=== PATIENT | female | born 1950 | race Caucasian/White ===

== ENCOUNTER 2017-01-30 16:32 | Emergency (ER) | payer OTHER ==
[~2017-01-30] VITALS: Ht 171.5 cm; Wt 114.2 kg
[2017-01-30 16:56] VITALS: TEMP 36.6; Ht 171.5 cm; Wt 114.2 kg
[2017-01-30 18:15] VITALS: O2SAT 95
[2017-01-30 18:49] LABS: BASO ABS # 0.07 K/uL (0-0.2); COMPLETE YES; HEMATOCRIT 48.3 % (37-47); IG% 0.4 %; LYMPH % 18.3 %; LYMPH ABS # 1.31 K/uL (1.2-3.4); MEAN CORPUSCULAR HEMOGLOBIN 31.3 pg (25-34); MEAN CORPUSCULAR HGB CONC 34.4 g/dl (32-36); MEAN PLATELET VOLUME 9.5 fL (7.4-10.4); MONO % 6.3 %; PLATELET COUNT 268 K/uL (130-400); RED BLOOD COUNT 5.31 M/uL (4.2-5.4); WHITE BLOOD COUNT 7.17 K/uL (4.8-10.8)
--- NOTE | 2017-01-30 18:54 | DIAGNOSTIC IMAGING REPORT ---
CHEST ONE VIEW PORTABLE CLINICAL HISTORY: Atypical chest pain. Atrial fibrillation. COMPARISON STUDY: No previous studies for comparison. FINDINGS: The heart is borderline enlarged. There is no overt failure. There is no lobar consolidation. There is minor basilar atelectasis. There are no pleural effusions.[ IMPRESSION: No active disease in the chest. Electronically signed by: Lee Barron M.D. 01/30/2017 6:53 PM Dictated Date/Time: 01/30/2017 6:52 PM
[2017-01-30 19:01] LABS: INR 1.1 (0.9-1.1); PROTHROMBIN TIME (PATIENT) 11.4 SECONDS (9.0-12.0)
[2017-01-30] MEDS ORDERED: MULT-513 PO (19:02)
[2017-01-30] MEDS ORDERED: METO50TA16 PO (19:02)
[2017-01-30] MEDS ORDERED: ASPI81TA28 PO (19:02)
[2017-01-30] MEDS ORDERED: PRT/20 PO (19:02)
[2017-01-30] MEDS ORDERED: LOSA25TA18 PO (19:02)
[2017-01-30 19:05] LABS: BLOOD UREA NITROGEN 8 mg/dl (7-18); BUN/CREATININE RATIO 9.7 (10-20); CALCIUM 9.3 mg/dl (8.5-10.1); CARBON DIOXIDE 30 mmol/L (21-32); CHLORIDE 110 mmol/L (98-107); CREATININE 0.84 mg/dl (0.60-1.20); GLUCOSE 118 mg/dl (70-99); POTASSIUM 3.7 mmol/L (3.5-5.1); SODIUM 144 mmol/L (136-145)
[2017-01-30] MEDS ORDERED: WARFARIN SOD 3 MG TAB PO STA (19:07)
[2017-01-30] MEDS ORDERED: ENOXAPARIN 100 MG/1ML SYR SQ ONE (19:15)
[2017-01-30] MEDS ORDERED: ENOX100I SQ (20:30)
[2017-01-30] MEDS ORDERED: WARF2TAB PO (20:30)
[2017-01-30 21:00] VITALS: BP 146/102; PULSE 63; O2SAT 95
--- NOTE | 2017-01-30 22:28 | EMERGENCY ROOM VISIT NOTE ---
History Report prepared by Ioana: Sol Carson Under the Supervision of: Dr. Isaias Raymond D.O. First contact with patient: 17:57 Chief Complaint: REFERRED BY DOCTOR Stated Complaint: A FIB History of Present Illness The patient is a 67 year old female who presents to the Emergency Room with complaints of resolved palpitations which started at 1430. The patient has a history of atrial fibrillation. The patient was on Coumadin, but was taken off because she did not have any symptoms. She is currently taking a baby aspiring daily. She is also on metoprolol. Today, she was at lunch with her friend when the palpitations began. She finished her lunch and went home. Upon arriving home , she noticed that her heart rate was 123. She took some extra metoprolol to no significant relief. She went to the walk in clinic and had an EKG which found that she was in a fib. She was sent to the ED. Upon arriving here, her symptoms improved. She denies any chest pain, SOB, abdominal pain, nausea, vomiting, or dysuria. She had 1 episode of diarrhea today. She denies any hematuria, hemoptysis, bloody stools, or vaginal bleeding. She denies any history of brain bleeds. She denies any recent trauma. She did not have any trouble with the Coumadin when she was on it. She has had some high blood pressure recently and was started on Cozaar. She denies any history of CHF, diabetes, or stroke. Source of History: patient Onset: 1430 today Position: other (global) Quality: other (palpitations) Timing: resolved Associated Symptoms: + diarrhea, No chest pain, No SOB, No nausea, No vomiting, No abdominal pain, No hematochezia, No urinary symptoms Note: Pt denies vaginal bleeding. Review of Systems See HPI for pertinent positives & negatives. A total of 10 systems reviewed and were otherwise negative. Past Medical & Surgical Medical Problems: (1) Hypertension Family History Diabetes mellitus Social History Smoking Status: Never Smoker Marital Status: Occupation Status: retired Current/Historical Medications Scheduled Aspirin (Aspirin Ec), 81 MG PO DAILY Enoxaparin (Lovenox), 110 MG SQ BID Metoprolol Tartrate (Lopressor) (Lopressor), 75 MG PO BID Multivitamins/Minerals (Mvi With Minerals), 1 TAB PO DAILY Pantoprazole (Protonix), 1 TAB PO DAILY Warfarin Sodium (Coumadin), 2 MG PO DAILY Scheduled PRN Losartan Potassium (Cozaar), 25 MG PO DAILY PRN for HYPERTENSION Allergies Coded Allergies: Penicillins (Verified Allergy, Severe, RASH, 01/30/17) Physical Exam Vital Signs Date Time Temp Pulse Resp B/P (MAP) Pulse Ox O2 Delivery O2 Flow Rate FiO2 01/30/17 21:00 63 16 146/102 95 01/30/17 20:09 63 17 158/95 96 Room Air 01/30/17 19:17 71 01/30/17 18:15 65 14 148/105 95 Room Air 01/30/17 18:15 95 Room Air 01/30/17 18:15 95 01/30/17 16:56 36.6 89 18 156/7 96 Room Air Physical Exam GENERAL: sitting up in bed, alert, well appearing, well nourished, no distress, non-toxic, Chads-Vasc score of 3. EYE EXAM: normal conjunctiva OROPHARYNX: no exudate, no erythema, lips, buccal mucosa, and tongue normal and mucous membranes are moist NECK: supple, no nuchal rigidity, no adenopathy, non-tender LUNGS: Clear to auscultation. Normal chest wall mechanics HEART: no murmurs, S1 normal and S2 normal ABDOMEN: abdomen soft, non-tender, normo-active bowel sounds, no masses, no rebound or guarding. BACK: Back is symmetrical on inspection and there is no deformity, no midline tenderness, no CVA tenderness. SKIN: no rashes and no bruising UPPER EXTREMITIES: upper extremities are grossly normal. LOWER EXTREMITIES: No pitting edema. Calves equal bilaterally. NEURO EXAM: Normal sensorium, cranial nerves II-XII grossly intact, normal speech, no gross weakness of arms, no gross weakness of legs. Medical Decision & Procedures ER Provider Diagnostic Interpretation: Radiology results as stated below per my review and the radiologist's interpretation: CHEST ONE VIEW PORTABLE CLINICAL HISTORY: Atypical chest pain. Atrial fibrillation. COMPARISON STUDY: No previous studies for comparison. FINDINGS: The heart is borderline enlarged. There is no overt failure. There is no lobar consolidation. There is minor basilar atelectasis. There are no pleural effusions.[ IMPRESSION: No active disease in the chest. Electronically signed by: Lee Barron M.D. 01/30/2017 6:53 PM Dictated Date/Time: 01/30/2017 6:52 PM Laboratory Results 01/30/17 18:38 Red Blood Count 5.31, Mean Corpuscular Volume 91.0, Mean Corpuscular Hemoglobin 31.3, Mean Corpuscular Hemoglobin Concent 34.4, Mean Platelet Volume 9.5, Neutrophils (%) (Auto) 68.0, Lymphocytes (%) (Auto) 18.3, Monocytes (%) (Auto) 6.3, Eosinophils (%) (Auto) 6.0, Basophils (%) (Auto) 1.0, Neutrophils # (Auto) 4.88, Lymphocytes # (Auto) 1.31, Monocytes # (Auto) 0.45, Eosinophils # (Auto) 0.43, Basophils # (Auto) 0.07 01/30/17 18:38 Test 01/30/17 18:38 White Blood Count 7.17 K/uL (4.8-10.8) Red Blood Count 5.31 M/uL (4.2-5.4) Hemoglobin 16.6 g/dL (12.0-16.0) Hematocrit 48.3 % (37-47) Mean Corpuscular Volume 91.0 fL (80-100) Mean Corpuscular Hemoglobin 31.3 pg (25-34) Mean Corpuscular Hemoglobin Concent 34.4 g/dl (32-36) Platelet Count 268 K/uL (130-400) Mean Platelet Volume 9.5 fL (7.4-10.4) Neutrophils (%) (Auto) 68.0 % Lymphocytes (%) (Auto) 18.3 % Monocytes (%) (Auto) 6.3 % Eosinophils (%) (Auto) 6.0 % Basophils (%) (Auto) 1.0 % Neutrophils # (Auto) 4.88 K/uL (1.4-6.5) Lymphocytes # (Auto) 1.31 K/uL (1.2-3.4) Monocytes # (Auto) 0.45 K/uL (0.11-0.59) Eosinophils # (Auto) 0.43 K/uL (0-0.5) Basophils # (Auto) 0.07 K/uL (0-0.2) RDW Standard Deviation 44.1 fL (36.4-46.3) RDW Coefficient of Variation 13.2 % (11.5-14.5) Immature Granulocyte % (Auto) 0.4 % Immature Granulocyte # (Auto) 0.03 K/uL (0.00-0.02) Prothrombin Time 11.4 SECONDS (9.0-12.0) Prothromb Time International Ratio 1.1 (0.9-1.1) Anion Gap 4.0 mmol/L (3-11) Est Creatinine Clear Calc Drug Dose 85.5 ml/min Estimated GFR () 83.4 Estimated GFR (Non- 71.9 BUN/Creatinine Ratio 9.7 (10-20) Calcium Level 9.3 mg/dl (8.5-10.1) Total Creatine Kinase 52 U/L (26-192) Creatine Kinase MB < 0.5 ng/ml (0.5-3.6) Creatine Kinase MB Ratio (0-3.0) Troponin I < 0.015 ng/ml (0-0.045) Laboratory results per my review. Medications Administered Medications (Trade) Dose Ordered Sig/Montserrat Route Start Time Stop Time Status Last Admin Dose Admin Warfarin Sodium (Coumadin Tab) 3 mg NOW STAT PO 01/30/17 19:07 01/30/17 19:09 DC 01/30/17 20:04 3 MG Enoxaparin Sodium (Lovenox Inj) 110 mg NOW ONCE SQ 01/30/17 19:15 01/30/17 19:16 DC 01/30/17 20:04 110 MG ECG Indication: palpitations Rate (beats per minute): 89 Rhythm: sinus rhythm Findings: no ectopy, other (normal axis) Change: Previous EKG from office shows A fib at rate 127. ED Course ED COURSE: Vital signs were reviewed and showed hypertension The patients medical record was reviewed The above diagnostic studies were performed and reviewed. ED treatments and interventions as stated above. 1800: The patient was evaluated in room C1B. A complete history and physical examination was performed. 1906: Coumadin Tab 3 mg PO. 1914: Lovenox Inj 110 mg SQ. 1944: I discussed the patient's case with Dr. Askew, Cardiology [facility]. He agrees with the plan. 2032: Upon reevaluation, the patient is resting comfortably.I discussed my findings with the patient and she understands and agrees with the treatment plan. Based on the patients age, coexisting illnesses, exam and lab findings the decision to treat as an outpatient was made. The patient remained stable while under my care. The patient appeared well at the time of discharge. Medical Decision Differential diagnosis: Etiologies such as premature contractions, electrolyte abnormality, cardiac dysrhythmia, thyroid dysfunction, pulmonary embolism, infection, gastrointestinal, as well as others were entertained. Patient is a 67-year-old female who presents the ER for A. fib with RVR. She was evaluated PCPs office and referred in. She does have a history of A. fib previously. EKG from the office showed A. fib with RVR. EKG here shows normal sinus rhythm. She no chest pain or shortness breath. She has been on Coumadin previously. Discussed with the patient notes that her options as she has a chads vasc score of 3. She preferred to resume Coumadin and follow-up with her PCP for further options. I felt this is reasonable. I did discussed case with cardiology. He agreed with treatment. Patient had no risk factors for bleeding at this time. She is updated at bedside. She is discharged following 2 mg Coumadin dose with a prescription for 10 days of 2 mg which was her old regimen along with 5 days of Lovenox. She will see her PCP in the next 1-2 days for follow-up, additional prescriptions and an INR check. 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 Discussed with Pt concerning signs and symptoms to watch out for. Pt was instructed to follow up with their PCP and discussed with the patient their option to return to the ED at anytime for persistent or worsening symptoms. The appropriate anticipatory guidance and out-patient management, including indications for return to the emergency department, were explained at length to the patient and understood. Medication Reconcilliation Current Medication List: was personally reviewed by me Blood Pressure Screening Patient's blood pressure: Elevated blood pressure Blood pressure disposition: Elevated BP felt to be situational Consults Time Called: 1939 Consulting Physician: Dr. Askew, Cardiology [facility] Returned Call: 1944 I discussed the patient's case with him. He agrees with the plan. Impression Primary Impression: Atrial fibrillation with RVR Scribe Attestation The scribe's documentation has been prepared under my direction and personally reviewed by me in its entirety. I confirm that the note above accurately reflects all work, treatment, procedures, and medical decision making performed by me. Departure Information Dispostion Home / Self-Care Prescriptions Warfarin Sodium (COUMADIN) 2 Mg Tab 2 MG PO DAILY for 10 Days, #10 TAB Prov: sIaias Raymond, DO 01/30/17 Enoxaparin (LOVENOX) 100 Mg/Ml Inj 110 MG SQ BID for 5 Days Prov: Isaias Raymond, DO 01/30/17 Referrals Tanya Whitaker, DO Forms HOME CARE DOCUMENTATION FORM, IMPORTANT VISIT INFORMATION, WORK / SCHOOL INSTRUCTIONS Patient Instructions Coumadin, ED Afib, My [facility] Additional Instructions Please follow up with your primary care doctor or if you are a student, [facility] with in the next 24 hours. Any worsening of your symptoms, please return to the ED immediately. This includes any fevers greater than 100.4, worsening pain, chest pain, shortness breath, persistent nausea, palpitations, vomiting, unable to eat or drink, or any other concerning signs or symptoms from your standpoint. If you start to have any bleeding rectally, vaginally, within your urine or coughing up bloody need to return to the ER immediately. If you have any trauma includes hitting your head need to be evaluated by a physician as you are at an increased risk of bleeding. Please follow up with your primary care doctor tomorrow and you will need your INR checked in 3 days. You were only given a prescription for 5 days of Lovenox. Please complete this prescription was otherwise directed by your primary care doctor. You were only given a perception for 10 days worth of Coumadin. This is to ensure that you are evaluated by your primary care doctor and get an additional prescription for this.
== END 2017-01-30 21:00 | disposition home or self-care (01) ==
LOC: C.EDB 16:33 → C.EDC 21:00
DX: I48.0 Paroxysmal atrial fibrillation (principal); I10 Essential (primary) hypertension; Z83.3 Family history of diabetes mellitus; Z79.82 Long term (current) use of aspirin; Z79.899 Other long term (current) drug therapy

== ENCOUNTER → 2017-02-02 | Outpatient (CLI) | payer OTHER ==
[~2017-02-02] MED LIST: ASPI81TA28 PO; ENOX100I SQ; ENOX1INJ13 SQ; LOSA25TA18 PO; METO50TA16 PO; MULT-513 PO; PRT/20 PO; TMB100 PO; WARF2TAB PO
[2017-02-02 17:28] LABS: INR 1.5 (0.9-1.1); PROTHROMBIN TIME (PATIENT) 16.4 SECONDS (9.0-12.0)
== END | disposition home or self-care (01) ==
LOC: C.LABPBG 14:02
PROVIDERS: ATTEND Family Medicine
DX: I48.91 Unspecified atrial fibrillation (principal)

== ENCOUNTER 2017-02-06 07:41 | Observation (INO) | payer OTHER ==
[~2017-02-06] VITALS: Ht 172.7 cm; Wt 111.4 kg
[~2017-02-06 07:41] MED LIST changes: -ENOX1INJ13 SQ; -TMB100 PO
[2017-02-06] MEDS ORDERED: METOPROLOL TARTRATE 1 MG/ML VIAL IV STA ×2 (07:51→08:50)
--- NOTE | 2017-02-06 07:53 | EMERGENCY ROOM VISIT NOTE ---
History Report prepared by Ioana: Maryse Mcelroy Under the Supervision of: Dr. Geovanni Contreras D.O. First contact with patient: 07:45 Chief Complaint: TACHYCARDIA Stated Complaint: RAPID HEART RATE 135-140 History of Present Illness The patient is a 67 year old female who presents to the Emergency Room with complaints of a persistent irregular and tachycardic heart rate that began around 299. The patient reports a history of atrial fibrillation, noting that she was evaluated in the emergency department one week ago for her symptoms. She states that she was placed on Lovenox last Sunday and then Coumadin on Sunday. The patient states that she is experiencing palpitations and tachycardia. She denies any shortness of breath or chest pain. Source of History: patient Onset: 299 Position: other (heart) Quality: other (tachycardic and irregular) Timing: other (persistent) Associated Symptoms: No chest pain, No SOB Review of Systems See HPI for pertinent positives & negatives. A total of 10 systems reviewed and were otherwise negative. Past Medical & Surgical Medical Problems: (1) Heart palpitations (2) Hypertension Family History Diabetes mellitus Social History Smoking Status: Never Smoker Marital Status: Occupation Status: retired Current/Historical Medications Scheduled Enoxaparin Sodium (Lovenox), 110 MG SQ BID Metoprolol Tartrate (Lopressor) (Lopressor), 75 MG PO BID Multivitamins/Minerals (Mvi With Minerals), 1 TAB PO DAILY Pantoprazole (Protonix), 1 TAB PO DAILY Warfarin Sodium (Coumadin), 2 MG PO DAILY Scheduled PRN Losartan Potassium (Cozaar), 25 MG PO DAILY PRN for HYPERTENSION Allergies Coded Allergies: Penicillins (Verified Allergy, Severe, RASH, 02/06/17) Physical Exam Vital Signs Date Time Temp Pulse Resp B/P (MAP) Pulse Ox O2 Delivery O2 Flow Rate FiO2 02/06/17 12:24 99 16 107/79 94 Nasal Cannula 2.0 02/06/17 12:14 93 16 106/74 94 Nasal Cannula 2.0 02/06/17 12:07 117 20 108/89 94 Room Air 02/06/17 11:47 101 19 120/71 96 Nasal Cannula 2.0 02/06/17 11:44 96 Nasal Cannula 2.0 02/06/17 11:22 90 16 121/90 96 Nasal Cannula 2.0 02/06/17 10:41 86 15 119/78 02/06/17 10:12 121 16 143/108 96 Nasal Cannula 2.0 02/06/17 09:53 130 02/06/17 09:28 126 11 118/88 96 Nasal Cannula 2.0 02/06/17 09:17 124 12 116/93 98 Nasal Cannula 2.0 02/06/17 09:07 132 114/95 02/06/17 09:04 134 12 114/95 96 Nasal Cannula 02/06/17 08:44 132 14 123/86 98 Nasal Cannula 2.0 02/06/17 08:30 133 20 123/86 96 Nasal Cannula 2.0 02/06/17 08:29 96 Nasal Cannula 2.0 02/06/17 08:07 132 14 123/95 97 Nasal Cannula 2.0 02/06/17 08:03 134 132/99 02/06/17 07:59 137 02/06/17 07:58 126 16 132/99 96 Nasal Cannula 2.0 02/06/17 07:53 99 Nasal Cannula 2.0 02/06/17 07:50 95 Room Air 02/06/17 07:50 95 Room Air 02/06/17 07:50 96 Room Air 02/06/17 07:50 36.8 130 20 139/112 96 Room Air Physical Exam CONSTITUTIONAL/VITAL SIGNS: Reviewed / noted above. GENERAL: Non-toxic in appearance. INTEGUMENTARY: Warm, dry, and [place]. HEAD: Normocephalic. EYES: without scleral icterus or trauma. ENT/OROPHARYNX: clear and moist. LYMPHADENOPATHY/NECK: Is supple without lymphadenopathy or meningismus. RESPIRATORY: Lungs clear and equal. CARDIOVASCULAR: Rapid, irregular pulse. GI/ABDOMEN: Soft and nontender. No organomegaly or pulsatile mass. No rebound or guarding. Normal bowel sounds. EXTREMITIES: Warm and well perfused. BACK: No CVA tenderness. NEUROLOGICAL: Intact without focal deficits. PSYCHIATRIC: normal affect. MUSCULOSKELETAL: Normally developed with good muscle tone. Medical Decision & Procedures ER Provider Diagnostic Interpretation: X ray results and stated below per my interpretation and radiology interpretation. SINGLE VIEW CHEST CLINICAL HISTORY: Fever. Sepsis. FINDINGS: An AP, portable, upright chest radiograph is compared to study dated 01/30/2017. The examination is degraded by portable technique and patient rotation. The heart is top normal for projection. The pulmonary vasculature is noncongested. The lungs and pleural spaces are clear. No pneumothorax is seen. The skeletal structures are osteopenic. The bony thorax is grossly intact. IMPRESSION: No acute cardiopulmonary abnormality. Electronically signed by: Branden Valentin M.D. 02/06/2017 8:15 AM Dictated Date/Time: 02/06/2017 8:14 AM Laboratory Results 02/06/17 07:55 Red Blood Count 5.50, Mean Corpuscular Volume 92.7, Mean Corpuscular Hemoglobin 29.3, Mean Corpuscular Hemoglobin Concent 31.6, Mean Platelet Volume 10.2, Neutrophils (%) (Auto) 69.1, Lymphocytes (%) (Auto) 21.5, Monocytes (%) (Auto) 5.8, Eosinophils (%) (Auto) 2.8, Basophils (%) (Auto) 0.7, Neutrophils # (Auto) 5.22, Lymphocytes # (Auto) 1.62, Monocytes # (Auto) 0.44, Eosinophils # (Auto) 0.21, Basophils # (Auto) 0.05 02/06/17 07:55 Test 02/06/17 07:55 02/06/17 12:02 White Blood Count 7.55 K/uL (4.8-10.8) Red Blood Count 5.50 M/uL (4.2-5.4) Hemoglobin 16.1 g/dL (12.0-16.0) Hematocrit 51.0 % (37-47) Mean Corpuscular Volume 92.7 fL (80-100) Mean Corpuscular Hemoglobin 29.3 pg (25-34) Mean Corpuscular Hemoglobin Concent 31.6 g/dl (32-36) Platelet Count 280 K/uL (130-400) Mean Platelet Volume 10.2 fL (7.4-10.4) Neutrophils (%) (Auto) 69.1 % Lymphocytes (%) (Auto) 21.5 % Monocytes (%) (Auto) 5.8 % Eosinophils (%) (Auto) 2.8 % Basophils (%) (Auto) 0.7 % Neutrophils # (Auto) 5.22 K/uL (1.4-6.5) Lymphocytes # (Auto) 1.62 K/uL (1.2-3.4) Monocytes # (Auto) 0.44 K/uL (0.11-0.59) Eosinophils # (Auto) 0.21 K/uL (0-0.5) Basophils # (Auto) 0.05 K/uL (0-0.2) RDW Standard Deviation 45.5 fL (36.4-46.3) RDW Coefficient of Variation 13.4 % (11.5-14.5) Immature Granulocyte % (Auto) 0.1 % Immature Granulocyte # (Auto) 0.01 K/uL (0.00-0.02) Prothrombin Time 26.1 SECONDS (9.0-12.0) Prothromb Time International Ratio 2.4 (0.9-1.1) Activated Partial Thromboplast Time 35.5 SECONDS (21.0-31.0) Partial Thromboplastin Ratio 1.4 Anion Gap 8.0 mmol/L (3-11) Est Creatinine Clear Calc Drug Dose 87.4 ml/min Estimated GFR () 85.8 Estimated GFR (Non- 74.0 BUN/Creatinine Ratio 12.3 (10-20) Calcium Level 9.6 mg/dl (8.5-10.1) Total Bilirubin 0.5 mg/dl (0.2-1) Direct Bilirubin 0.1 mg/dl (0-0.2) Aspartate Amino Transf (AST/SGOT) 51 U/L (15-37) Alanine Aminotransferase (ALT/SGPT) 54 U/L (12-78) Alkaline Phosphatase 69 U/L (45-117) Total Creatine Kinase 41 U/L (26-192) Creatine Kinase MB 0.7 ng/ml (0.5-3.6) Creatine Kinase MB Ratio 1.7 (0-3.0) Troponin I < 0.015 ng/ml (0-0.045) Total Protein 7.6 gm/dl (6.4-8.2) Albumin 3.7 gm/dl (3.4-5.0) Lipase 122 U/L (73-393) Thyroid Stimulating Hormone (TSH) 1.920 uIu/ml (0.300-4.500) Laboratory results as stated above per my review. Medications Administered Medications (Trade) Dose Ordered Sig/Montserrat Route Start Time Stop Time Status Last Admin Dose Admin Metoprolol Tartrate (Lopressor Iv) 5 mg NOW STAT IV 02/06/17 07:51 02/06/17 07:52 DC 02/06/17 08:03 5 MG Metoprolol Tartrate (Lopressor Iv) 10 mg NOW STAT IV 02/06/17 08:50 02/06/17 08:52 DC 02/06/17 09:07 10 MG Diltiazem HCl (Cardizem Inj) 20 mg NOW STAT IV 02/06/17 10:14 02/06/17 10:15 DC 02/06/17 10:32 20 MG Diltiazem HCl (Cardizem Bolus / Drip) 1 ea NOW STAT IV 02/06/17 11:23 02/06/17 11:25 DC 02/06/17 11:23 1 EA Diltiazem HCl 125 mg/Dextrose 125 ml @ 0 mls/hr Q0M PRN IV 02/06/17 11:45 03/08/17 11:44 02/06/17 11:46 10 MLS/HR ECG Indication: palpitations, tachycardia Rate (beats per minute): 132 Rhythm: atrial fibrillation Findings: no acute ischemic change, no ectopy ED Course 0748: Previous medical records were reviewed. The patient was evaluated in room A12B. A complete history and physical examination was performed. 0751: Ordered Lopressor IV 5 mg IV. 0850: Ordered Lopressor IV 5 mg IV. 1014: Ordered Cardizem Inj 20 mg IV. 1113: I reevaluated the patient and she is resting. I discussed the exam findings with her and I discussed the treatment plan. She verbalized complete understanding and agreement. She will be evaluated for further treatment. 1118: I discussed the patients case with Dr. Beasley, Cardiology. He states that the patient should be placed on a Cardizem drip and evaluated in the hospital for further treatment. 1123: Ordered Cardizem Bolus/Drip 1 ea IV. 1159: The patients case was discussed with Dr. Walsh [facility]. He is going to evaluate the patient for further treatment. Medical Decision Differentials considered include acute myocardial infarction, acute coronary syndrome, myocarditis, pericarditis, pericardial effusions /tamponade, esophageal perforation, thoracic aortic dissection, pulmonary embolism, pneumonia, pneumothorax, pancreatitis, shingles, acute cholecystitis, and perforated abdominal viscus. This is a 67-year-old female who presents to the ED with a chief complaint of elevated heart rate. The patient has a history of atrial fibrillation. She states that her first episode was in October of this year. She had a recent episode about a week ago and was placed on Coumadin. The patient states that she developed symptoms around 5:30 AM this morning. She denies any associated shortness of breath or chest pains. The patient states that she can feel when she is in atrial fibrillation. The patient's twelve-lead EKG reveals A. fib at a rate of 132. CBC is unremarkable. INR is 2.4. Complete metabolic panel was unremarkable. Troponin is negative, chest x-ray was negative for acute disease. TSH is normal. The patient's exam was unremarkable other than tachycardic irregular rhythm. The patient was treated with a total 15 mg of IV Lopressor. This is not affect her rate or rhythm. The patient was then given IV Cardizem with a drip and her rate was controlled. I spoke with Dr. Beasley from cardiology about the patient. The patient will be seen for further evaluation by the hospitalist service and by cardiology services. Her rate was controlled on the Cardizem drip. Medication Reconcilliation Current Medication List: was personally reviewed by me Blood Pressure Screening Patient's blood pressure: Elevated blood pressure Blood pressure disposition: Referred to PCP (referred to the hospitalist) Consults Time Called: 1113 Consulting Physician: Dr. Beasley, Cardiology Returned Call: 1113 I discussed the patients case with Dr. Beasley, Cardiology. He states that the patient should be placed on a Cardizem drip and evaluated in the hospital for further treatment. Additional Consults: Time Called: 1126 Consulted Physician: NETO Fernandes Returned Call: 1152 Additional Comments: The patients case was discussed with NETO Fernandes. He is going to evaluate the patient for further treatment. Impression Primary Impression: Atrial fibrillation with RVR Scribe Attestation The scribe's documentation has been prepared under my direction and personally reviewed by me in its entirety. I confirm that the note above accurately reflects all work, treatment, procedures, and medical decision making performed by me. Departure Information Dispostion Being Evaluated By Hospitalist Referrals No Doctor, Assigned (PCP)
[2017-02-06] MEDS ORDERED: ENOX1INJ13 SQ (08:03)
--- NOTE | 2017-02-06 08:17 | DIAGNOSTIC IMAGING REPORT ---
SINGLE VIEW CHEST CLINICAL HISTORY: Fever. Sepsis. FINDINGS: An AP, portable, upright chest radiograph is compared to study dated 01/30/2017. The examination is degraded by portable technique and patient rotation. The heart is top normal for projection. The pulmonary vasculature is noncongested. The lungs and pleural spaces are clear. No pneumothorax is seen. The skeletal structures are osteopenic. The bony thorax is grossly intact. IMPRESSION: No acute cardiopulmonary abnormality. Electronically signed by: Branden Valentin M.D. 02/06/2017 8:15 AM Dictated Date/Time: 02/06/2017 8:14 AM
[2017-02-06 08:37] LABS: BASO % 0.7 %; BASO ABS # 0.05 K/uL (0-0.2); COMPLETE YES; EOS % 2.8 %; IG% 0.1 %; LYMPH % 21.5 %; LYMPH ABS # 1.62 K/uL (1.2-3.4); MEAN CELL VOLUME 92.7 fL (80-100); MEAN CORPUSCULAR HEMOGLOBIN 29.3 pg (25-34); MEAN CORPUSCULAR HGB CONC 31.6 g/dl (32-36); MEAN PLATELET VOLUME 10.2 fL (7.4-10.4); MONO % 5.8 %; NEUT % 69.1 %; PLATELET COUNT 280 K/uL (130-400); WHITE BLOOD COUNT 7.55 K/uL (4.8-10.8)
[2017-02-06 08:47] LABS: INR 2.4 (0.9-1.1); PARTIAL THROMBOPLASTIN RATIO 1.4; PROTHROMBIN TIME (PATIENT) 26.1 SECONDS (9.0-12.0)
[2017-02-06 08:54] LABS: ALT/SGPT 54 U/L (12-78); BLOOD UREA NITROGEN 10 mg/dl (7-18); BUN/CREATININE RATIO 12.3 (10-20); CALCIUM 9.6 mg/dl (8.5-10.1); CARBON DIOXIDE 26 mmol/L (21-32); CHLORIDE 110 mmol/L (98-107); CREATININE 0.82 mg/dl (0.60-1.20); GLUCOSE 118 mg/dl (70-99); POTASSIUM 3.7 mmol/L (3.5-5.1); SODIUM 144 mmol/L (136-145)
[2017-02-06 09:05] LABS: ALKALINE PHOSPHATASE 69 U/L (45-117); AST/SGOT 51 U/L (15-37); CKMB/CK RATIO 1.7 (0-3.0)
[2017-02-06] MEDS ORDERED: DILTIAZEM HCL 5 MG/ML 5 ML VIAL IV STA (10:14)
[2017-02-06] MEDS ORDERED: DILTIAZEM BOLUS / DRIP IV STA ×2 (11:23→11:40)
[2017-02-06 11:44] VITALS: O2SAT 96; Ht 172.7 cm; Wt 111.4 kg
[2017-02-06] MEDS ORDERED: ALUMINUM/MAGNESIUM/SIMETH (MAALOX MAX) 30 ML UDC PO PRN (11:45)
[2017-02-06] MEDS ORDERED: ACETAMINOPHEN 325 MG TAB PO PRN (11:45)
[2017-02-06] MEDS ORDERED: MoRPHine SULFATE 2 MG/ML CARP IV PRN (11:45)
[2017-02-06] MEDS ORDERED: ONDANSETRON INJ 2 MG/ML 2 ML VIAL IV PRN (11:45)
[2017-02-06] MEDS ORDERED: MAGNESIUM HYDROXIDE SUSP 30 ML UDC PO PRN (11:45)
[2017-02-06] MEDS ORDERED: LOSARTAN POTASSIUM 25 MG TAB PO PRN (11:45)
[2017-02-06] MEDS ORDERED: POLYETHYLENE (MIRALAX) 17 GM PACK PO PRN (11:45)
[2017-02-06] MEDS ORDERED: DILTIAZEM HCL INJ 125 MG in DEXTROSE 5% 100ML IV PRN ×2 (11:45→15:00)
--- NOTE | 2017-02-06 12:19 | History and Physical ---
History & Physical Date & Time of Service: Feb 06, 2017 at 12:04 Chief Complaint: Rapid Heart Rate 135-140 Primary Care Physician: Tanya Whitaker DO History of Present Illness Source: patient 67 y/o F Hx HTN, PAF. Pt had an initial episode of AF October 02 treated at [facility] - reverted to a sinus rhythm. She had an additional episode one week prior and was sent from her PCP office to [facility] [address]. She reverted to a sinus rhythm on route. She again developed palpitations today and presented to the ER where AF with a rate of ~ 130 was confirmed. She denies any accompanying CP, SOB or light-headedness. The pt was placed on Lovenox and transitioned to Coumadin following her 2nd episode of AF - her INR is therapeutic on arrival. 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 Smoking Status: Never Smoker Marital Status: Occupational Status: retired Allergies Coded Allergies: Penicillins (Verified Allergy, Severe, RASH, 02/06/17) Home Medications Scheduled Flecainide Acetate (Flecainide Acetate), 50 MG PO Q12 Metoprolol Tartrate (Lopressor) (Lopressor), 75 MG PO BID Multivitamins/Minerals (Mvi With Minerals), 1 TAB PO DAILY Pantoprazole (Protonix), 1 TAB PO DAILY Warfarin Sodium (Coumadin), 2 MG PO DAILY Scheduled PRN Losartan Potassium (Cozaar), 25 MG PO DAILY PRN for HYPERTENSION Review of Systems Constitutional: No fever, No chills, No sweats Eyes: No worsening of vision ENT: No hearing loss, No nasal symptoms Respiratory: No cough, No sputum, No wheezing Cardiovascular: + palpitations, No chest pain, No orthopnea Abdomen: No pain, No nausea, No vomiting Musculoskeletal: No joint pain Genitourinary - Female: No dysuria Neurologic: No memory loss, No paralysis, No weakness Psychiatric: No depression symptoms Endocrine: No fatigue Hematologic / Lymphatic: No abnormal bleeding/bruising Integumentary: No rash Allergic / Immunologic: No environmental allergies Physical Exam Vital Signs Date Time Temp Pulse Resp B/P (MAP) Pulse Ox O2 Delivery O2 Flow Rate FiO2 02/06/17 11:47 101 19 120/71 96 Nasal Cannula 2.0 02/06/17 11:44 96 Nasal Cannula 2.0 02/06/17 11:22 90 16 121/90 96 Nasal Cannula 2.0 02/06/17 10:41 86 15 119/78 02/06/17 10:12 121 16 143/108 96 Nasal Cannula 2.0 02/06/17 09:53 130 02/06/17 09:28 126 11 118/88 96 Nasal Cannula 2.0 02/06/17 09:17 124 12 116/93 98 Nasal Cannula 2.0 02/06/17 09:07 132 114/95 02/06/17 09:04 134 12 114/95 96 Nasal Cannula 02/06/17 08:44 132 14 123/86 98 Nasal Cannula 2.0 02/06/17 08:30 133 20 123/86 96 Nasal Cannula 2.0 02/06/17 08:29 96 Nasal Cannula 2.0 02/06/17 08:07 132 14 123/95 97 Nasal Cannula 2.0 02/06/17 08:03 134 132/99 02/06/17 07:59 137 02/06/17 07:58 126 16 132/99 96 Nasal Cannula 2.0 02/06/17 07:53 99 Nasal Cannula 2.0 02/06/17 07:50 95 Room Air 02/06/17 07:50 95 Room Air 02/06/17 07:50 96 Room Air 02/06/17 07:50 36.8 130 20 139/112 96 Room Air General Appearance: WD/WN Head: normocephalic Eyes: normal inspection, EOMI ENT: normal ENT inspection, pharynx normal Neck: supple, no JVD Respiratory/Chest: chest non-tender, lungs clear, normal breath sounds Cardiovascular: no edema, no gallop, no JVD, no murmur, normal peripheral pulses, + tachycardia, + irregularly irregular Abdomen/GI: normal bowel sounds, non tender, soft Back: normal inspection, no CVA tenderness, no muscle spasm, normal range of motion Extremities/Musculoskelatal: normal inspection, no calf tenderness, normal capillary refill, no pedal edema, normal range of motion Neurologic/Psych: lathmaker II-XII nml as tested, no motor/sensory deficits, alert, oriented x 3 Skin: normal color, warm/dry, no rash Diagnostics Laboratory Results Results Past 24 Hours Test 02/06/17 07:55 02/06/17 12:02 Range/Units White Blood Count 7.55 4.8-10.8 K/uL Red Blood Count 5.50 4.2-5.4 M/uL Hemoglobin 16.1 12.0-16.0 g/dL Hematocrit 51.0 37-47 % Mean Corpuscular Volume 92.7 80-100 fL Mean Corpuscular Hemoglobin 29.3 25-34 pg Mean Corpuscular Hemoglobin Concent 31.6 32-36 g/dl Platelet Count 280 130-400 K/uL Mean Platelet Volume 10.2 7.4-10.4 fL Neutrophils (%) (Auto) 69.1 % Lymphocytes (%) (Auto) 21.5 % Monocytes (%) (Auto) 5.8 % Eosinophils (%) (Auto) 2.8 % Basophils (%) (Auto) 0.7 % Neutrophils # (Auto) 5.22 1.4-6.5 K/uL Lymphocytes # (Auto) 1.62 1.2-3.4 K/uL Monocytes # (Auto) 0.44 0.11-0.59 K/uL Eosinophils # (Auto) 0.21 0-0.5 K/uL Basophils # (Auto) 0.05 0-0.2 K/uL RDW Standard Deviation 45.5 36.4-46.3 fL RDW Coefficient of Variation 13.4 11.5-14.5 % Immature Granulocyte % (Auto) 0.1 % Immature Granulocyte # (Auto) 0.01 0.00-0.02 K/uL Prothrombin Time 26.1 9.0-12.0 SECONDS Prothromb Time International Ratio 2.4 0.9-1.1 Activated Partial Thromboplast Time 35.5 21.0-31.0 SECONDS Partial Thromboplastin Ratio 1.4 Sodium Level 144 136-145 mmol/L Potassium Level 3.7 3.5-5.1 mmol/L Chloride Level 110 98-107 mmol/L Carbon Dioxide Level 26 21-32 mmol/L Anion Gap 8.0 3-11 mmol/L Blood Urea Nitrogen 10 7-18 mg/dl Creatinine 0.82 0.60-1.20 mg/dl Est Creatinine Clear Calc Drug Dose 87.4 ml/min Estimated GFR () 85.8 Estimated GFR (Non- 74.0 BUN/Creatinine Ratio 12.3 10-20 Random Glucose 118 70-99 mg/dl Calcium Level 9.6 8.5-10.1 mg/dl Total Bilirubin 0.5 0.2-1 mg/dl Direct Bilirubin 0.1 0-0.2 mg/dl Aspartate Amino Transf (AST/SGOT) 51 15-37 U/L Alanine Aminotransferase (ALT/SGPT) 54 12-78 U/L Alkaline Phosphatase 69 45-117 U/L Total Creatine Kinase 41 26-192 U/L Creatine Kinase MB 0.7 0.5-3.6 ng/ml Creatine Kinase MB Ratio 1.7 0-3.0 Troponin I < 0.015 0-0.045 ng/ml Total Protein 7.6 6.4-8.2 gm/dl Albumin 3.7 3.4-5.0 gm/dl Lipase 122 73-393 U/L Thyroid Stimulating Hormone (TSH) 1.920 0.300-4.500 uIu/ml EKG AF/RVR Impression Assessment and Plan 67 y/o F Hx HTN, PAF. Pt had an initial episode of AF October 02 treated at [facility] - reverted to a sinus rhythm. She had an additional episode one week prior and was sent from her PCP office to [facility] [address]. She reverted to a sinus rhythm on route. She again developed palpitations today and presented to the ER where AF with a rate of ~ 130 was confirmed. She denies any accompanying CP, SOB or light-headedness. The pt was placed on Lovenox and transitioned to Coumadin following her 2nd episode of AF - her INR is therapeutic on arrival. 1) AF - placed on a Cardizem drip. She is normally on BID Metoprolol which may be inadequate. We will consult cardiology and obtain an echo as she has not yet had a workup. She had a normal TSH during a previous visit. She will remain on her current Coumadin dose although she is likely eligible for Xarelto or Eliquis 2) HTN - Currently on a Cardizem drip - can resume her B marylin at discretion of cardiology or if she reverts to a sinus rhythm. Full code - anticoagulated with Coumadin Total time for this admit including review of labs, meds, EKG - discussion with pt and ER attending - 36 min Level of Care Telemetry Advanced Directives Existing Living Will: No Existing Power of Visual Aid Expert: No Resuscitation Status FULL RESUSCITATION VTE Prophylaxis VTE Risk Assessment Done? Y/N: Yes Risk Level: Moderate Given or contraindicated: Warfarin (Coumadin)
[2017-02-06] MEDS ORDERED: IV FLUIDS COMPLETED PRN (12:30)
[2017-02-06 13:34] VITALS: BP 114/64; PULSE 92; O2SAT 94
[2017-02-06] MEDS ORDERED: NSS + 20MEQ KCL 1000ML 1,000 ML IV SCH (14:45)
[2017-02-06 16:17] VITALS: BP 98/56; PULSE 75; TEMP 36.7; O2SAT 94
[2017-02-06] MEDS: WARFARIN SOD 2 MG TAB PO SCH (16:53)
[2017-02-06 18:44] VITALS: BP 109/67; PULSE 104; TEMP 36.6; O2SAT 95
--- NOTE | 2017-02-06 19:02 | CARDIOLOGY CONSULTATION ---
DATE OF CONSULTATION: 02/06/2017 TIME: 18:04 p.m. CONSULTING PHYSICIAN: Dr. Walsh. REASON FOR CONSULTATION: Atrial fibrillation with rapid ventricular response. HISTORY OF PRESENT ILLNESS: Ms. Alexis is a pleasant 67-year-old female with a history significant for hypertension and mitral valve prolapse as well as paroxysmal atrial fibrillation. She has had 3 documented episodes of atrial fibrillation. The first was in October of 2016. She went to [facility] and was started on intravenous diltiazem and converted approximately 1 hour later. She was sent home with Lovenox and Coumadin for a 10-day course and then discontinued. The second episode was in the end of January, 1 week ago, when she was seen at Dr. Libroio Wallace's office and noted to have an atrial fibrillation with rapid ventricular response on ECG. She converted on the way to the Emergency Department. She was able to feel both the onset of symptoms and also when she converted to sinus rhythm. She was started on Lovenox and Coumadin 2 mg daily, which has been managed by her PCP, Dr. Whitaker. She did well for approximately 1 week. At 03:00 a.m., she was awakened with palpitations. She took extra metoprolol for a total dose of 100 mg this morning, but had no significant improvement in her symptoms. She was seen in the Emergency Department. Dr. Contreras of the Emergency Department spoke via telephone and stated that he had given 50 mg of IV metoprolol with no significant improvement in heart rate. He then gave 20 mg of IV diltiazem, which improved her heart rate; however, her heart rate began to once again increase. It was recommended at that time that she be placed on a diltiazem drip and considered for antiarrhythmic therapy. She was brought in for observation. She continues to feel palpitations, but feels much better now that her heart rate is slower. She remains symptomatic despite improved rate control. She denies chest pain, syncope, near syncope, shortness of breath, orthopnea, PND, edema, melena, hematochezia, hematuria, or other bleeding. There have not been any recent fevers, chills, diarrhea, nausea, vomiting, or abdominal pain. She states that she has removed caffeine from her diet and does not consume any significant amount of alcohol. REVIEW OF SYSTEMS: As above and review of systems is otherwise negative/unremarkable. PAST MEDICAL HISTORY: 1. Paroxysmal atrial fibrillation. 2. Hypertension. 3. Mitral valve prolapse. 4. She has had 2 cardiac catheterizations, one in [place] and one in [place] approximately 2013 being the most recent. She was told that she had no significant coronary artery disease. HOME MEDICATIONS: Include, 1. Metoprolol tartrate 75 mg twice daily. 2. Coumadin 2 mg daily. 3. Protonix 40 mg daily. 4. Multivitamin. 5. Losartan 25 mg as needed for diastolic blood pressure of greater than 90. She estimates taking approximately 2 per week. INPATIENT MEDICATIONS: Include diltiazem drip 10 mg per hour, losartan 25 mg p.r.n., Coumadin 2 mg daily, and Protonix 40 mg daily. ALLERGIES: PENICILLIN. SOCIAL HISTORY: Denies tobacco, drug abuse or alcohol abuse. She is . One son and one granddaughter. 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 She lives alone in [place]. She is cousins with Dr. Liborio Wallace through marriage. FAMILY HISTORY: No known premature CAD. Her mother had diabetes. PHYSICAL EXAMINATION: VITAL SIGNS: Temperature 36.7 degrees, heart rate 75 beats per minute, respiratory rate 14, blood pressure 98/56 mmHg, and oxygen saturation 94% on room air. Weight 113.6 kg. GENERAL: In no acute distress. She is alert and oriented. HEENT: Anicteric sclerae. NECK: No appreciable JVD. No bruits. Normal carotid upstrokes bilaterally. CARDIAC: PMI nonpalpable. There was no ventricular heave, irregularly irregular, normal S1 and S2. No audible murmurs, rubs or gallops. LUNGS: Clear to auscultation bilaterally without wheezes, rales or rhonchi. ABDOMEN: Soft, nontender, and nondistended. Normoactive bowel sounds. No bruits noted. EXTREMITIES: No cyanosis or pitting edema. No palpable cords. 2+ radial pulses bilaterally. 2+ dorsalis pedis pulses bilaterally. PSYCHIATRIC: Affect appears appropriate. LABORATORY DATA: White blood cell count 7.55, hemoglobin 16.1, and platelets 280. Sodium 144, potassium 3.7, BUN 10, creatinine 0.82, and glucose 118. AST 51 and ALT 54. Troponin undetectable x1. Lipase 122. TSH 1.92. INR is 2.4. ECG personally reviewed. ECG upon presentation demonstrated atrial fibrillation with rapid ventricular response at 132 beats per minute. Chest x-ray report reviewed. No acute cardiopulmonary abnormality reported by radiology. Chest x-ray image personally reviewed. No obvious infiltrate noted. ASSESSMENT AND PLAN: 1. Paroxysmal atrial fibrillation with rapid ventricular response: She is symptomatic even with improved heart rate control. We discussed treatment strategies. A rate control strategy does not appear to be reasonable given the fact that she remains symptomatic despite adequate rate control. Recommend antiarrhythmic therapy. Echocardiogram was recommended to Dr. Contreras while in the Emergency Department and this is currently pending. If she has no evidence of structural heart disease, we will likely start flecainide and continue on her home dose of metoprolol. For now, can continue diltiazem drip until we have more information available. She will hopefully spontaneously convert, which has historically been the case in her last 2 episodes. Would then still start antiarrhythmic therapy given the frequent recurrence over the past few months. Continue anticoagulation for stroke risk reduction. We also discussed electrical cardioversion if she does not convert soon and given the fact that she is therapeutic with her INR, this can be done without transesophageal echo. This will be reassessed tomorrow. 2. Hypertension: Blood pressure is currently mildly hypotensive, but she appears to be asymptomatic in this regard. She is not currently on her home dose of metoprolol, but this can be restarted at her home dose 75 mg twice daily. Can adjust diltiazem drip if she becomes hypotensive or bradycardic. We would want her to be on rate controlling medication such as flecainide if initiated. 3. Coronary artery disease: She states that she had a minor blockage of 18% on her coronary angiography done in [facility]. Records are requested for review. If this is the case, would consider high intensity statin therapy, which can be started here or as an outpatient. Will await records. 4. Disposition: Cardiology will continue to follow. The patient's care was discussed with Dr. Contreras of the Emergency Department. Thanks for allowing me to participate in care of Ms. Alexis. Sincerely, NEIDA
[2017-02-06 20:00] VITALS: BP 113/89; PULSE 91; TEMP 36.4; O2SAT 92
[2017-02-06] MEDS: METOPROLOL TARTRATE 25 MG TAB PO SCH (20:20)
[2017-02-06] MEDS ORDERED: NURSING VERBAL MED ORDER ONE (22:30)
[2017-02-06 23:05] VITALS: BP 97/63; PULSE 61; TEMP 36.5; O2SAT 94
[2017-02-07] VITALS (7 sets, daily range): BP systolic 102–147; BP diastolic 67–85; PULSE 61–73; TEMP 36.4–37.5; O2SAT 94–98
[2017-02-07 07:11] LABS: INR 2.4 (0.9-1.1); PROTHROMBIN TIME (PATIENT) 26.9 SECONDS (9.0-12.0)
[2017-02-07] MEDS ORDERED: PERFLUTREN LIPID MICROSPHERE (DEFINITY) IV ONE (07:11)
--- NOTE | 2017-02-07 08:00 | ECHOCARDIOGRAM REPORT ---
*NOTICE TO RECEIVING DEMOCRAT AGENCY This information is strictly Confidential and protected under [place] law. [place] law prohibits you from making any further disclosure of this information unless further disclosure is expressly permitted by the written consent of the person to whom it pertains or is authorized by law. A general authorization for the release of medical or other information is not sufficient for this purpose. Hospital accepts no responsibility if the information is made available to any other person, INCLUDING THE PATIENT. Interpretation Summary * Name: MORENA MCCARTHY Study Date: 02/07/2017 06:42 AM BP: 102/68 mmHg * Patient Location: C.2E\S\E202\S\1 HR: 61 * : 1950 (M/d/yyyy) Gender: Female Height: 68 in * Age: 67 yrs Ethnicity: CA Weight: 250 lb * Ordering Physician: Ray Walsh * Performed By: Rosibel Clifton * * Reason For Study: A-FIB * BSA: 2.2 m2 * -- Conclusions -- * 1. Normal left ventricular size and systolic function. EF 60-65%. No regional wall motion abnormalities. No left ventricular hypertrophy. No significant diastolic dysfunction. * 2. The left atrium is moderately dilated. * 3. The right atrium is mildly dilated. * 4. No significant valvular abnormalities visualized. * 5. Normal estimated right ventricular systolic pressure. * 6. Technically difficult study, enhanced with IV Definity. 7. No prior study available for comparison. Procedure Details * A complete two-dimensional transthoracic echocardiogram was performed (2D, M-mode, Doppler and color flow Doppler). * The study was technically difficult. * There were technical limitations due to patient'sbody habitus * A contrast injection of Definity was performed to improve assessment of LV function. * Contrast was injected into an intravenous site in the left arm. * One vial of Definity ultrasound contrast was diluted in normal saline to a total volume of 10 ml. A total of '3' ml of solution was administered during imaging. * Lot # [id number] of Definity utilized for procedure. * Expiration date 03/21. * The attending nurse who injected the contrast agent was SALIMA MIKE RN. Left Ventricle * Normal left ventricular size and systolic function. EF 60-65%. No regional wall motion abnormalities. No left ventricular hypertrophy. No significant diastolic dysfunction. Right Ventricle * The right ventricle is normal in size and function. * The right ventricular systolic function is normal as assessed by tricuspid annular plane systolic excursion (TAPSE) (normal >1.5 cm). Atria * The left atrium is moderately dilated. * The right atrium is mildly dilated. * There is no evidence of atrial septal defect, but resolution does not allow assessment for a patent foramen ovale. Mitral Valve * The mitral valve is grossly normal. * There is no mitral valve stenosis. * There is trace mitral regurgitation. Tricuspid Valve * The tricuspid valve is not well visualized, but is grossly normal. * There is no tricuspid stenosis. * Significant tricuspid regurgitation is absent. Aortic Valve * The aortic valve is not well visualized. * No hemodynamically significant valvular aortic stenosis. * There is no significant aortic regurgitation. Pulmonic Valve * The pulmonic valve is not well visualized. * There is no pulmonic valvular stenosis. * There is no significant pulmonary regurgitation. Great Vessels * The aortic root is normal size. * Ascending aorta of normal dimension Pericardium/Pleural * There is no pericardial effusion. Great Vessels * Top normal IVC size with reduced inspiratory collapse. MMode 2D Measurements and Calculations IVSd 1.1 cm LVIDd 4.1 cm LVIDs 2.6 cm LVPWd 1.1 cm IVS/LVPW 0.93 FS 35.6 % EDV(Teich) 72.2 ml ESV(Teich) 24.8 ml EF(Teich) 65.6 % EDV(cubed) 66.5 ml ESV(cubed) 17.8 ml EF(cubed) 73.3 % LV mass(C)d 146.7 grams LV mass(C)dI 65.3 grams/m\S\2 CO(Teich) 3.4 l/min CI(Teich) 1.5 l/min/m\S\2 SV(Teich) 47.3 ml SI(Teich) 21.1 ml/m\S\2 CO(cubed) 3.5 l/min CI(cubed) 1.5 l/min/m\S\2 SV(cubed) 48.8 ml SI(cubed) 21.7 ml/m\S\2 Ao root diam 2.7 cm Ao root area 5.6 cm\S\2 ACS 1.4 cm asc Aorta Diam 2.7 cm LVOT diam 1.7 cm LVOT area 2.4 cm\S\2 LVAd ap4 28.6 cm\S\2 LVLd ap4 7.6 cm EDV(MOD-sp4) 87.4 ml EDV(sp4-el) 100.7 ml LVAs ap4 15.1 cm\S\2 LVLs ap4 6.3 cm ESV(MOD-sp4) 29.6 ml ESV(sp4-el) 35.6 ml EF(MOD-sp4) 66.1 % EF(sp4-el) 64.6 % LVAd ap2 32.4 cm\S\2 LVLd ap2 7.4 cm EDV(MOD-sp2) 114.0 ml EDV(sp2-el) 104.7 ml LVAs ap2 16.4 cm\S\2 LVLs ap2 6.2 cm ESV(MOD-sp2) 35.6 ml ESV(sp2-el) 42.2 ml EF(MOD-sp2) 68.8 % EF(sp2-el) 59.6 % CO(MOD-sp4) 4.1 l/min CI(MOD-sp4) 1.8 l/min/m\S\2 SV(MOD-sp4) 57.8 ml SI(MOD-sp4) 25.7 ml/m\S\2 CO(MOD-sp2) 5.6 l/min CI(MOD-sp2) 2.5 l/min/m\S\2 SV(MOD-sp2) 78.4 ml SI(MOD-sp2) 34.9 ml/m\S\2 CO(sp4-el) 4.6 l/min CI(sp4-el) 2.1 l/min/m\S\2 SV(sp4-el) 65.1 ml SI(sp4-el) 28.9 ml/m\S\2 CO(sp2-el) 4.4 l/min CI(sp2-el) 2.0 l/min/m\S\2 SV(sp2-el) 62.4 ml SI(sp2-el) 27.8 ml/m\S\2 Doppler Measurements and Calculations MV E max abner 98.0 cm/sec MV A max abner 69.4 cm/sec MV E/A 1.4 MV dec time 0.21 sec Ao V2 max 140.1 cm/sec Ao max PG 7.8 mmHg Ao max PG (full) 5.0 mmHg MARIA C(V,A) 1.4 cm\S\2 MARIA C(V,D) 1.4 cm\S\2 LV V1 max PG 2.9 mmHg LV V1 max 84.9 cm/sec MR max abner 368.1 cm/sec MR max PG 54.2 mmHg PA V2 max 59.2 cm/sec PA max PG 1.4 mmHg TR max abner 237.8 cm/sec RVSP(TR) 30.6 mmHg RAP systole 8.0 mmHg
--- NOTE | 2017-02-07 08:26 | Hospitalist Progress Note ---
Hospitalist Progress Note Date of Service Feb 07, 2017. Objective Vital Signs Date Time Temp Pulse Resp B/P (MAP) Pulse Ox O2 Delivery O2 Flow Rate FiO2 02/07/17 04:00 Room Air 02/07/17 03:10 37.5 61 18 102/68 (79) 98 Room Air 02/07/17 02:10 126/76 (93) 02/06/17 23:59 Room Air 02/06/17 23:05 36.5 61 18 97/63 (74) 94 Room Air 02/06/17 20:00 Room Air 02/06/17 20:00 36.4 91 20 113/89 (97) 92 Room Air 02/06/17 18:44 36.6 104 18 109/67 (81) 95 Room Air 02/06/17 16:17 36.7 75 14 98/56 (70) 94 Room Air 02/06/17 16:00 Room Air 02/06/17 13:34 92 18 114/64 (81) 94 Room Air 02/06/17 12:24 99 16 107/79 94 Nasal Cannula 2.0 02/06/17 12:14 93 16 106/74 94 Nasal Cannula 2.0 02/06/17 12:07 117 20 108/89 94 Room Air 02/06/17 11:47 101 19 120/71 96 Nasal Cannula 2.0 02/06/17 11:44 96 Nasal Cannula 2.0 02/06/17 11:22 90 16 121/90 96 Nasal Cannula 2.0 02/06/17 10:41 86 15 119/78 02/06/17 10:12 121 16 143/108 96 Nasal Cannula 2.0 02/06/17 09:53 130 02/06/17 09:28 126 11 118/88 96 Nasal Cannula 2.0 02/06/17 09:17 124 12 116/93 98 Nasal Cannula 2.0 02/06/17 09:07 132 114/95 02/06/17 09:04 134 12 114/95 96 Nasal Cannula 02/06/17 08:44 132 14 123/86 98 Nasal Cannula 2.0 02/06/17 08:30 133 20 123/86 96 Nasal Cannula 2.0 02/06/17 08:29 96 Nasal Cannula 2.0 Laboratory Results Last 24 Hours Test 02/07/17 06:05 Prothrombin Time 26.9 SECONDS Prothromb Time International Ratio 2.4 Assessment and Plan 67 y/o F Hx HTN, PAF. Presenting after multiple episodes of symptomatic atrial fibrillation and spontaneous conversion. She is anticoagulated with coumadin with therapeutic INR at time of admission. Atrial fibrillation - Continue on tele - Cardiology consulted, ECHO completed and appears normal, LVEF of 65%, no wall motion abnormalities. She was placed on a Cardizem drip and continues on this for now until other antiarrhythmic therapy is determined per cardiology. - Appears flecanide is being considered - Troponin negative - Continuing metoprolol 75 mg BID for now. - She will remain on her current Coumadin dose although she is likely eligible for Xarelto or Eliquis HTN - Currently on a Cardizem drip - Metoprolol resumed at 75 mg BID DVT ppx: Coumadin CODE STATUS: Full code
[2017-02-07] MEDS ORDERED: FLECAINIDE ACETATE 100 MG TAB PO SCH ×3 (09:00→21:00)
[2017-02-07] MEDS ORDERED: CEROVITE ADV FORMULA TAB PO SCH (09:00)
[2017-02-07] MEDS ORDERED: PANTOprazole SOD 40 MG TAB PO SCH (09:00)
--- NOTE | 2017-02-07 09:19 | CARDIOLOGY PROGRESS NOTE ---
DATE: 02/07/2017 DATE: 02/07/2017 TIME: 8:49 a.m. SUBJECTIVE: She denies chest pain, shortness of breath, palpitation, syncope, near syncope, edema or bleeding. She converted to sinus rhythm last night at 2117 p.m. She has been able to feel symptoms even while rate controlled. OBJECTIVE: VITAL SIGNS: Temperature 36.7 degrees, heart rate 69 beats per minute, respiration rate 16, blood pressure 120/85 mmHg, oxygen saturation 95% on room air. Weight 111.4 kg. GENERAL: In no acute distress, alert and oriented. NECK: No JVD. CARDIAC EXAMINATION: No ventricular heave, regular, normal S1, S2. No audible murmurs, rubs or gallops. LUNGS: Clear to auscultation bilaterally without wheezes, rales or rhonchi. ABDOMEN: Soft, nontender, nondistended. Normoactive bowel sounds. EXTREMITIES: No cyanosis or edema. PSYCHIATRIC: Affect appears appropriate. MEDICATIONS: Include metoprolol tartrate 75 mg twice daily, Coumadin 2 mg daily, Protonix 40 mg daily. Telemetry personally reviewed. Sinus rhythm. LABORATORY DATA: INR 2.4. Echocardiogram performed this morning demonstrated normal LV systolic function with an EF of 60-65%. No regional wall motion abnormalities. Moderate left atrial dilation, mild right atrial dilation. No significant valvular abnormalities. Normal estimated RVSP. ASSESSMENT AND PLAN: 1. Paroxysmal atrial fibrillation: Symptomatic with each episode that has been documented. Given the fact that she has recurrent episodes recommend antiarrhythmic therapy, flecainide 50 mg twice daily recommended and started at this time. If she has recurrence, would increase to 100 mg twice daily. Continue metoprolol at home dose while on flecainide. Continue anticoagulation for stroke risk reduction. INR followed by her PCP. 2. Hypertension: Blood pressure adequately controlled. Continue outpatient regimen. 3. Coronary artery disease: She reported very minimal CAD on cardiac catheterization in the past. Records have been requested for review, but are not yet available. If she truly does have CAD, would recommend high intensity statin therapy. She has no angina. 4. Disposition: From a cardiac perspective, she can be discharged home. She should follow up with cardiology as an outpatient. She has been seen by Dr. Aguirre in the past and also should follow up with her PCP. Primary hospitalist group will be contacted to discuss patient care. Thank for allowing me to participate in the care of Vanesa.
[2017-02-07] MEDS: METOPROLOL TARTRATE 25 MG TAB PO SCH (09:45)
[2017-02-07] MEDS ORDERED: TMB100 PO (09:48)
--- NOTE | 2017-02-07 10:08 | Discharge Instructions ---
Discharge Instructions Date of Service Feb 07, 2017. Admission Reason for Admission: Heart Palipitations Discharge Discharge Diagnosis / Problem: Atrial Fibrillation Discharge Goals Goal(s): Decrease discomfort, Improve function, Increase independence, Improve disease control Activity Recommendations Activity Limitations: resume your previous activity Lifting Limitations: no more than 25 pounds, gradually increase as tolerated Exercise/Sports Limitations: rest today, gradually increase as tolerated May Resume Sexual Activity: when tolerated Shower/Bathe: no limitations Driving or Machine Use: no limitations . Instructions / Follow-Up Instructions / Follow-Up You were admitted to [facility] with heart palpitations and diagnosed with atrial fibrillation with RVR. During your stay here you were treated with intravenous cardizem to control your heart rate. This was transitioned to an antiarrhythmic called flecanide, continue taking this medication as directed. Your symptoms resolved and you were in normal sinus rhythm at time of discharge. Your troponin levels were negative. Imaging studies which were completed include 2 D echocardiogram, and were normal. - If you experience return of cardiac symptoms with heart palpitations, flutter please call the cardiology office. Medications: Continue taking your medications as prescribed. Appointments: Follow up with your Primary Care Provider within 1 week. Follow up with cardiology within 1-[address] Hernandez, an appointment has been requested for you. Current Hospital Diet Patient's current hospital diet: AHA Diet (Heart Healthy), Low Fat Diet Discharge Diet Recommended Diet: AHA Diet (Heart Healthy), Low Fat Diet Pending Studies Studies pending at discharge: no Medical Emergencies . Who to Call and When: Medical Emergencies: If at any time you feel your situation is an emergency, please call 911 immediately. . Non-Emergent Contact Non-Emergency issues call your: Primary Care Provider Call Non-Emergent contact if: you have a fever, temperature is above 100.5, your pain is not controlled, your pain is worsening, your pain is unusual for you, your pain is concerning you, you have any medication questions . Past History Medical & Surgical History: (1) Atrial fibrillation with RVR . "Provider Documentation" section prepared by Melanie Rios. . VTE Core Measure Inpt VTE Proph given/why not?: Warfarin (Coumadin), T.E.D. Stockings, SCD's
--- NOTE | 2017-02-07 10:18 | Discharge Summary ---
Discharge Summary Date of Service Feb 07, 2017. (Moon Rios PA-C) Discharge Summary Admission Date: Feb 06, 2017 at 11:46 Discharge Date: Feb 07, 2017 Discharge Disposition: Home Principal Diagnosis: Atrial fibrillation Problems/Secondary Diagnoses: HTN Obesity Procedures: SINGLE VIEW CHEST CLINICAL HISTORY: Fever. Sepsis. FINDINGS: An AP, portable, upright chest radiograph is compared to study dated 01/30/2017. The examination is degraded by portable technique and patient rotation. The heart is top normal for projection. The pulmonary vasculature is noncongested. The lungs and pleural spaces are clear. No pneumothorax is seen. The skeletal structures are osteopenic. The bony thorax is grossly intact. IMPRESSION: No acute cardiopulmonary abnormality. Electronically signed by: Branden Valentin M.D. 02/06/2017 8:15 AM Dictated Date/Time: 02/06/2017 8:14 AM The status of this report is Signed. Echocardiogram 02/06/17 * -- Conclusions -- * 1. Normal left ventricular size and systolic function. EF 60-65%. No regional wall motion abnormalities. No left ventricular hypertrophy. No significant diastolic dysfunction. * 2. The left atrium is moderately dilated. * 3. The right atrium is mildly dilated. * 4. No significant valvular abnormalities visualized. * 5. Normal estimated right ventricular systolic pressure. * 6. Technically difficult study, enhanced with IV Definity. 7. No prior study available for comparison. Consultations: Cardiology (Moon Rios PA-C) Medication Reconciliation New Medications: Flecainide Acetate (Flecainide Acetate) 100 Mg Tab 50 MG PO Q12 for 30 Days, #60 TAB Continued Medications: Losartan Potassium (Cozaar) 25 Mg Tab 25 MG PO DAILY PRN for HYPERTENSION, TAB Metoprolol Tartrate (Lopressor) (Lopressor) 50 Mg Tab 75 MG PO BID, TAB Multivitamins/Minerals (Mvi With Minerals) Tab 1 TAB PO DAILY, TAB Pantoprazole (Protonix) Unknown Strength Tab 1 TAB PO DAILY, #30 TAB Warfarin Sodium (Coumadin) 2 Mg Tab 2 MG PO DAILY for 10 Days, #10 TAB Discontinued Medications: Enoxaparin Sodium (Lovenox) 120 Mg/0.8 Ml Inj 110 MG SQ BID, SYR Discharge Exam The patient was seen and examined this morning. Pt reports doing well. Her symptoms have resolved. Denies flutter, palpitations, lightheadedness or dizziness. Review of Systems: Constitutional: No fever, No chills, No sweats Eyes: No problem reported ENT: No trouble swallowing Respiratory: No shortness of breath, No dyspnea on exertion Cardiovascular: No chest pain, No edema Abdomen: No pain, No nausea, No vomiting, No diarrhea Musculoskeletal: No joint pain, No swelling, No calf pain Genitourinary - Female: No dysuria Neurologic: No memory loss, No numbness/tingling Endocrine: No fatigue Integumentary: No rash, No itch Physical Exam: General Appearance: WD/WN, no apparent distress, + obese Eyes: PERRL, EOMI ENT: hearing grossly normal, pharynx normal Neck: supple, no JVD Respiratory/Chest: lungs clear, no respiratory distress, no accessory muscle use Cardiovascular: regular rate, rhythm, no murmur, normal peripheral pulses Abdomen / GI: normal bowel sounds, non tender, soft Extremities: no calf tenderness, no pedal edema Neurologic/Psychiatric: alert, normal mood/affect, oriented x 3 Skin: normal color, warm/dry (Moon Rios, HARLEY) Hospital Course History of Present Illness Source: patient 67 y/o F Hx HTN, PAF. Pt had an initial episode of AF October 02 treated at [facility] - reverted to a sinus rhythm. She had an additional episode one day prior and was sent from her PCP office to [facility]. She reverted to a sinus rhythm on route. She again developed palpitations today and presented to the ER where AF with a rate of ~ 130 was confirmed. She denies any accompanying CP, SOB or light-headedness. The pt was placed on Lovenox and transitioned to Coumadin following her 2nd episode of AF - her INR is therapeutic on arrival. PE: General Appearance: WD/WN Head: normocephalic Eyes: normal inspection, EOMI ENT: normal ENT inspection, pharynx normal Neck: supple, no JVD Respiratory/Chest: chest non-tender, lungs clear, normal breath sounds Cardiovascular: no edema, no gallop, no JVD, no murmur, normal peripheral pulses, + tachycardia, + irregularly irregular Abdomen/GI: normal bowel sounds, non tender, soft Back: normal inspection, no CVA tenderness, no muscle spasm, normal range of motion Extremities/Musculoskelatal: normal inspection, no calf tenderness, normal capillary refill, no pedal edema, normal range of motion Neurologic/Psych: radiotelegraphist II-XII nml as tested, no motor/sensory deficits, alert, oriented x 3 Skin: normal color, warm/dry, no rash Hospital Course: 67 y/o F Hx HTN, PAF. Presenting after multiple episodes of symptomatic atrial fibrillation and spontaneous conversion. She is anticoagulated with coumadin with therapeutic INR at time of admission. Atrial fibrillation - Continue on tele - Cardiology consulted, ECHO completed and appears normal, LVEF of 65%, no wall motion abnormalities. She was placed on a Cardizem drip at time of addmission and was switched over to flecanide 50 mg Q12H. - Troponin negative - Continuing metoprolol 75 mg BID - She will remain on her current Coumadin, INR followed by PCP. HTN - Metoprolol resumed at 75 mg BID DVT ppx: Coumadin CODE STATUS: Full code Discharge home today. Total Time Spent: Greater than 30 minutes This includes examination of the patient, discharge planning, medication reconciliation, and communication with other providers. (Moon Rios PA-C) LIZABETH Physician Supervision Note: I interviewed and examined the patient. Discussed with Moon Rios PAC and agree with findings and plan as documented in the note. Any exceptions or clarifications are listed here: None Patient presented with atrial fibrillation RVR she converted with intravenous diltiazem was seen by her cuffer who recommended flecainide therapy. The patient remained in sinus rhythm. She'll be home on initiating flecainide therapy. Her INR is therapeutic we will continue Coumadin but likely discussions in the future for a NOAC if she has no valvular heart disease Pulse the bedside 66 blood pressure stable heart rate is regular lungs are clear Atrial fibrillation converted to sinus rhythm, continue flecainide at the coagulation and close follow-up with Dr. Beasley Documented By: Albin Clements (Albin Clements M.D.) Discharge Instructions Please refer to the electronic Patient Visit Report (Discharge Instructions) for additional information. (Moon Rios PA-C) Follow-Up Follow up with your Primary Care Provider within 1 week. Follow up with cardiology within 1-[address] Hernandez (Moon Rios, PA-C) Additional Copies To Tanya Whitaker,
[2017-02-07] MEDS: WARFARIN SOD 2 MG TAB PO SCH (15:13)
== END 2017-02-07 16:55 | disposition home or self-care (01) ==
LOC: C.EDB 07:42 → C.2E 11:46 → ENRESERV 12:28
PROVIDERS: ADMIT Internal Medicine; ATTEND Internal Medicine
DX: I48.0 Paroxysmal atrial fibrillation (principal); I10 Essential (primary) hypertension; Z79.899 Other long term (current) drug therapy; Z79.01 Long term (current) use of anticoagulants; E66.9 Obesity, unspecified; Z83.3 Family history of diabetes mellitus

== ENCOUNTER 2025-05-30 17:58 | Inpatient (IN) ==
--- NOTE | 2025-05-30 18:26 | Emergency Department Note ---
Impression & Plan Atrial fibrillation with rapid ventricular response ED Provider Note Provider: Cesar Castañeda MD CHIEF COMPLAINT: Elevated heart rate HISTORY OF PRESENT ILLNESS: Patient is a 75-year-old female significant past medical history of atrial fibrillation on warfarin, CAD, hypertension, and recent treatment for UTI presenting here today reporting she has ongoing elevated heart rate throughout the week. Was seen in the emergency department just over a week ago. Had a trial of increased flecainide dose and then with her search engine optimization specialist office switched to higher dose metoprolol. Has been feeling more fatigued the last several days but heart rate persist high above 100 and to the 120s. States her normal resting heart rates normally in the 60s. Maybe a little bit of swelling of the legs but denies significant shortness of breath. No fainting or trauma reported. States she is completing her antibiotic course last dose tomorrow for urinary tract infection but denies significant symptoms here. Given persistently elevated heart rate while on the increased dose of metoprolol for last several days came here for evaluation. Denies any chest pain. PAST MEDICAL HISTORY: As noted above MEDICATIONS: Reviewed with her home medications includes warfarin and metoprolol, no longer includes flecainide SOCIAL HISTORY: Non-smoker PHYSICAL EXAM: GENERAL: alert and oriented in no acute distress on stretcher Head: normocephalic and atraumatic EYES: No injection, discharge or icterus. NECK: Trachea midline. ENT: Mucous membranes pink and moist. LUNGS: Airway patent. No retractions. Breath sounds clear HEART: Tachycardic irregular regular rate and rhythm. No chest wall tenderness ABDOMEN: Soft and non-tender, without guarding or rebound. SKIN: Acyanotic, warm, dry, without rashes EXTREMITIES: Without tenderness with 1+ bilateral lower extremity edema NEUROLOGICAL: No focal deficits. No aphasia. No facial droop or slurred speech. Ambulatory. EK bpm atrial fibrillation with rapid ventricular response. No acute ST segment elevation with a QTc of 488. No ST segment depression noted. CONTINUOUS CARDIAC MONITORING: was ordered and showed a heart rate of 100s-120s bpm in atrial fibrillation Patient's laboratory studies and imaging reviewed. Differential includes Premature contractions, electrolyte abnormality, cardiac dysrhythmia, thyroid dysfunction, pulmonary embolism, infection, gastrointestinal, as well as other pathologies. IMPRESSION/MEDICAL DECISION MAKING: Patient not hypoxic and does not appear significant fluid overloaded. Is noted be in rapid A-fib upon arrival. Her description seems like this is likely persisted for at least several days. Has been working with her search engine optimization specialist on plans switching from flecainide to increase metoprolol doses without real effect. Did complete a course of antibiotics but urine culture from recent evaluation here mixed polo. Unsure what exactly is provoked the A-fib RVR but it seems like its poorly controlled even with several attempts at outpatient management with medications. Not in any extremis or unstable. Lab work including electrolytes and troponin will be completed as well as a chest x-ray. She does not appear significantly fluid overloaded. INR is checked. Blood work here without significant leukocytosis or anemia. Normal platelet count. No significant electrolyte abnormality signs of renal dysfunction. No transaminitis. Troponin normal at 13.5. This is reassuring. Given an IV dose of metoprolol here initially. No real change with this. Will start diltiazem bolus and drip for further rate control as beta-marylin seem ineffective. Will bring in for further titration of medications for rate control. Hospitalist was contacted. DIAGNOSIS: A-fib RVR DISPOSITION: Hospitalist will evaluate Patient was agreeable with this plan. Critical Care I have personally spent 31 minutes of critical care time in the direct management of this patient. This includes bedside care, interpretation of diagnostic studies, and testing, discussion with consultants, patient, and other required patient management activities. These 31 minutes is in excess of all separately billable procedures. Past Med/Surg History Problem List (Updated 05/30/25 @ 21:51 by Cesar Castañeda M.D.) Atrial fibrillation with rapid ventricular response (Acute) Elevated INR Edema Acute UTI (Acute) Tachycardia (Acute) Atrial fibrillation (Acute) Obesity (BMI 30-39.9) Scalp lesion Actinic keratosis Decreased exercise tolerance longterm current use of anticoagulant Reactive airway disease Vitamin D deficiency AG (dyspnea on exertion) Colloid cyst of third ventricle AF (paroxysmal atrial fibrillation) Pulsatile tinnitus, bilateral Nodule of right lung CAD in [place] artery Cerebral aneurysm Generalized anxiety disorder HLD (hyperlipidemia) EMILY (obstructive sleep apnea) GERD (gastroesophageal reflux disease) Hypertension Medical History Cough B12 deficiency History of basal cell carcinoma of skin Surgical History S/P Mohs surgery for basal cell carcinoma H/O oral surgery H/O dilation and curettage History of cholecystectomy Family History Father Alcohol abuse Brother Alcohol abuse Mother Heart disease Diabetes Pancreatic cancer Aunt Breast cancer Family/Other Breast cancer COUSIN Denies family history of Ovarian cancer Prostate cancer Myocardial infarction Colorectal cancer Social History Smoking Status: Never smoker Second Hand Exposure: No; Do You Dip or Chew Tobacco: No; Hx Alcohol Use: Yes Alcohol Intake Frequency: Monthly or Less Hx Substance Use: No Preferred Language: Kazakh Communication Ability: Effective Visual Impairment: No Limitations Hearing Ability: Normal Orthodontist Small Business Owner Required: No Beliefs That Will Affect Care: None marital status: Current Living Situation: Significant Other current occupational status: retired How many Children do You have: 1 Feels Safe at Home: Yes Childhood Exposure to Second-Hand Smoke: No Diet: regular Diet Comment: Regular caffeine: No during the past year weight has: remained stable Dental Care, Regularly: Yes Physical Activity Frequency: 1-2 Times per Week Physical Activity Frequency Comment: House work Seatbelt Use: always Sunscreen Use: Yes Allergies Allergies Allergy/AdvReac Type Severity Reaction Status Date / Time Penicillins Allergy Severe RASH Verified 05/30/25 19:36 Home Meds Home Medications Medication Instructions Recorded Confirmed multivitamin 1 tab PO DAILY 12/20/18 05/30/25 acetaminophen 500 mg tablet 500 mg PO Q6H PRN Pain 11/30/23 05/30/25 lisinopril 5 mg tablet 2.5 mg PO DAILY 05/12/25 05/30/25 warfarin 2 mg tablet 2 mg PO DIRECTED 05/22/25 05/30/25 cholecalciferol (vitamin D3) 25 25 mcg PO DAILY 05/25/25 05/30/25 mcg (1,000 unit) tablet (Vitamin D3) cyanocobalamin (vitamin B-12) 50 50 mcg PO DAILY 05/25/25 05/30/25 mcg tablet pantoprazole 20 mg tablet,delayed 20 mg PO DAILY 05/25/25 05/30/25 release rosuvastatin 10 mg tablet 10 mg PO DAILY 05/25/25 05/30/25 Previous Rx's Medication Instructions Recorded metoprolol tartrate 50 mg tablet 50 mg PO BID #180 tabs 05/25/25 Results & Data (ED) Vital Signs Vital Signs - 24 hr 05/30/25 18:05 05/30/25 18:12 05/30/25 18:24 Temperature 36.5 C Temperature Source Temporal Artery Scan Pulse Rate 117 H 115 H Pulse Rate [Right Finger] Pulse Rhythm [Right Finger] Pulse Strength [Right Finger] Respiratory Rate 18 Respiratory Effort / Characteristics Non-Labored Spontaneous Short of Breath Respiratory Depth Normal Respiratory Pattern Regular Blood Pressure 141/90 H Blood Pressure [Right Arm] Blood Pressure Mean 107 Blood Pressure Mean [Right Arm] Pulse Oximetry 94 Oxygen Delivery Method Room Air Sepsis Recent Fever Within 48 Hours No Sepsis New/Unexplained Change in Mental Status N/A Sepsis Action Taken by Nursing No Action Required 05/30/25 18:57 05/30/25 19:00 05/30/25 19:44 Temperature Temperature Source Pulse Rate 116 H Pulse Rate [Right Finger] 117 H Pulse Rhythm [Right Finger] Irregular Pulse Strength [Right Finger] Normal Respiratory Rate 16 Respiratory Effort / Characteristics Non-Labored Respiratory Depth Normal Respiratory Pattern Blood Pressure 139/97 Blood Pressure [Right Arm] 141/100 H Blood Pressure Mean Blood Pressure Mean [Right Arm] 113 Pulse Oximetry 95 97 Oxygen Delivery Method Room Air Room Air Sepsis Recent Fever Within 48 Hours Sepsis New/Unexplained Change in Mental Status Sepsis Action Taken by Nursing 05/30/25 19:44 05/30/25 20:14 Temperature Temperature Source Pulse Rate Pulse Rate [Right Finger] 108 H 99 H Pulse Rhythm [Right Finger] Irregular Irregular Pulse Strength [Right Finger] Respiratory Rate 18 16 Respiratory Effort / Characteristics Non-Labored Non-Labored Respiratory Depth Normal Normal Respiratory Pattern Blood Pressure Blood Pressure [Right Arm] 149/103 H 137/99 Blood Pressure Mean Blood Pressure Mean [Right Arm] 118 111 Pulse Oximetry 97 97 Oxygen Delivery Method Room Air Room Air Sepsis Recent Fever Within 48 Hours Sepsis New/Unexplained Change in Mental Status Sepsis Action Taken by Nursing Laboratory Data 05/30/25 18:20 05/30/25 18:20 Lab Results 05/30/25 05/30/25 Range/Units 18:20 19:37 WBC 8.67 (4.8-10.8) K/ul RBC 5.50 H (4.20-5.40) M/uL Hgb 16.6 H (12.0-16.0) g/dL Hct 50.6 H (37.0-47.0) % MCV 92.0 (80.0-100.0) fL MCH 30.2 (25.0-34.0) pg MCHC 32.8 (32.0-36.0) g/dL RDW Std Deviation 44.2 (36.4-46.3) fL RDW Coeff of Angie 12.9 (11.5-14.5) % Plt Count 259 (130-400) K/uL MPV 9.5 (9.4-12.4) fL Immature Gran % (Auto) 0.2 % Neut % (Auto) 66.3 % Lymph % (Auto) 21.8 % Ness % (Auto) 9.6 % Eos % (Auto) 1.2 % Baso % (Auto) 0.9 % Neut # (Auto) 5.75 (1.40-6.50) K/uL Lymph # (Auto) 1.89 (1.20-3.40) K/uL Ness # (Auto) 0.83 H (0.11-0.59) K/uL Eos # (Auto) 0.10 (0.00-0.50) K/uL Baso # (Auto) 0.08 (0.00-0.20) K/uL Immature Gran # (Auto) 0.02 (0.01-0.20) K/uL PT 41.3 H (9.0-12.0) Seconds INR 4.2 H (0.9-1.1) APTT 32 H (21-31) Seconds PTT Ratio 1.2 Sodium 140 (136-145) mmol/L Potassium 4.1 (3.5-5.1) mmol/L Chloride 104 (98-107) mmol/L Carbon Dioxide 29 (21-32) mmol/L Anion Gap 7 (3-11) BUN 12 (6-23) mg/dl Creatinine 0.74 (0.6-1.2) mg/dl Est Cr Clr Drug Dosing 84.3 ml/min eGFR 84.32 BUN/Creatinine Ratio 16.2 (10-20) Glucose 110 H (70-99(Fasting)) mg/dl Calcium 9.3 (8.6-10.3) mg/dl Magnesium 1.9 (1.7-2.4) mg/dl Total Bilirubin 0.9 (0.2-1.0) mg/dl AST 26 (13-39) U/L ALT 14 (7-52) U/L Alkaline Phosphatase 57 (34-104) U/L Troponin I High Sens 13.5 (0-14) pg/ml Total Protein 6.9 (6.0-8.3) gm/dl Albumin 3.7 (3.4-5.0) gm/dl Globulin 3.2 (2.5-4.0) gm/dl Albumin/Globulin Ratio 1.2 (0.9-2) Urine Color Yellow Urine Appearance Clear (Clear) Urine pH 6.5 (4.5-7.5) Ur Specific [place] 1.012 (1.000-1.030) Urine Protein Negative (Negative) Urine Glucose (UA) Negative (Negative) Urine Ketones Negative (Negative) Urine Blood Trace H (Negative) Urine Nitrite Negative (Negative) Urine Bilirubin Negative (Negative) Urine Urobilinogen Negative (Negative) Ur Leukocyte Esterase 1+ H (Negative) Urine WBC (Auto) 11-20 H (0-5) /hpf Urine RBC (Auto) 3-5 H (0-2) /hpf U Hyaline Cast (Auto) 0-2 (0-2) /lpf U Epithel Cells (Auto) 3-5 H (0-2) /hpf Urine Bacteria (Auto) None Seen (None Seen) Urine Comment SARS-CoV-2 (PCR) NEGATIVE (Negative) Influenza Type A (PCR) Negative (Neg) Influenza Type B (PCR) Negative (Neg) RSV (RT-PCR) Negative (Neg) Administered Medications Diltiazem HCl 125 mg/ Dextrose 125 mls @ 5 mls/hr IV .Q24H [facility]; Protocol Stop: 06/29/25 19:14 Last Admin: 05/30/25 19:39 Dose: 5 mg/hr, 5 mls/hr Documented By: ANTONIO Co-signed By: beka Discontinued Medications Diltiazem HCl (Diltiazem Hcl 5 Mg/Ml 5 Ml Vial) 10 mg IV NOW STA Stop: 05/30/25 19:16 Last Admin: 05/30/25 19:38 Dose: 10 mg Documented By: ANTONIO Co-signed By: beka Metoprolol Tartrate (Metoprolol Tartrate 1 Mg/Ml Vial) 5 mg IV NOW STA Stop: 05/30/25 18:24 Last Admin: 05/30/25 18:57 Dose: 5 mg Documented By: KMO Discharge Plan Visit Data Chief Complaint: Tachycardia Stated Complaint: ELEVATED HEART RATE ED Provider: Cesar Castañeda Discharge Problem: Atrial fibrillation with rapid ventricular response Patient Disposition: Admitted As Inpatient Condition: Fair Discharge Instructions Interventions: ED Discharge Assessment Last Done: 05/30/25 21:35
[2025-05-30 18:55] LABS: Hematocrit (blood only) 50.6 % (37.0-47.0); Hemoglobin 16.6 g/dL (12.0-16.0); Immature Granulocytes # (auto) 0.02 K/uL (0.01-0.20); Immature Granulocytes % (auto) 0.2 %; Mean Corpuscular Hemoglobin 30.2 pg (25.0-34.0); Mean Corpuscular Volume 92.0 fL (80.0-100.0); Platelet Count 259 K/uL (130-400); RDW Standard Deviation 44.2 fL (36.4-46.3); Red Blood Count 5.50 M/uL (4.20-5.40); White Blood Count 8.67 K/ul (4.8-10.8)
[2025-05-30] MEDS: METOPROLOL TARTRATE 1 MG/ML VIAL IV STA (18:57)
[2025-05-30 19:27] LABS: Alanine Aminotransferase 14.0 U/L (7-52); Albumin Globulin Ratio 1.2 (0.9-2); Albumin Level 3.7 gm/dl (3.4-5.0); Alkaline Phosphatase 57.0 U/L (34-104); Anion Gap 7.0 (3-11); Bilirubin,Total 0.9 mg/dl (0.2-1.0); Blood Urea Nitrogen 12.0 mg/dl (6-23); Calcium 9.3 mg/dl (8.6-10.3); Carbon Dioxide 29.0 mmol/L (21-32); Chloride 104.0 mmol/L (98-107); Creatinine Clr Calc Pharmacy 84.3 ml/min; Globulin 3.2 gm/dl (2.5-4.0); Glucose 110.0 mg/dl (70-99(Fasting)); Magnesium 1.9 mg/dl (1.7-2.4); Potassium 4.1 mmol/L (3.5-5.1); Sodium 140.0 mmol/L (136-145); Total Protein 6.9 gm/dl (6.0-8.3)
[2025-05-30 19:38] LABS: INR 4.2 (0.9-1.1); Partial Thromboplastin Time 32 Seconds (21-31); Prothrombin Time 41.3 Seconds (9.0-12.0)
[2025-05-30 19:51] LABS: Appearance Urine Clear (Clear); Bacteria Urine Automated None Seen (None Seen); Cast Urine Automated 0-2 /lpf (0-2); Glucose Urine UA Negative (Negative)
--- NOTE | 2025-05-30 20:06 | History & Physical Report ---
Date of Service May 30, 2025 Assessment & Plan (1) Atrial fibrillation with RVR: (2) Elevated INR: Plan 75-year-old female PMHx A-fib on warfarin, CAD, actinic keratosis, anxiety, HLD, EMILY, GERD, and HTN presenting for elevated heart rate on the day of arrival. Evaluation does reveal elevated INR of 4.2 and UA suspicious of a possible infection versus contamination, however culture is still pending and patient is without symptoms. COVID/flu/RSV and CXR official read are still pending. Admission for A-fib RVR. #A-fib RVR H/o Afib, previously on flecainide but discontinued by secretary bookkeeper and placed on metoprolol twice daily for rate control as compared to rhythm control (last visit 05/25/2025). No clear infection or identifiable cause of onset of A-fib with RVR at this time. INR is elevated. H/o EMILY, utilizes a sleep apnea patch, no CPAP. UA ? infected vs contaminated, pending cultures (without LUTS). Only other change was steroid injection into her knee on 05/27/2025. Admission for rate control, will consult cardiology regarding potential medication adjustments given recurrence of Afib with RVR on metoprolol. - CBC without leukocytosis or leukopenia, H&H is 16.6/50.6; CMP grossly WNL; TSH from 05/22/2025 1.982; troponin 13.5 - PT/INR 41.3/4.2 respectively - COVID/flu/RSV negative - CXR pending official read - EKG A-fib with RVR at 117 bpm - Echo 01/01/2025 EF 55 to 60% - pending repeat AM - O2 HS - Continue diltiazem drip - Diltiazem po AM as BP allows -- start at 30mg TID po - Hold metoprolol at time of admission - Cardiology consulted - appreciate input + recs #Elevated INR Warfarin 1mg daily and 2mg every Sunday; no bleeding reported. No dietary adjustments, follows with PCP monthly for INR checks. - INR 4.2 - Hold Warfarin at time of admission - Repeat INR AM #HTN- Lisinopril - continue #HLD- Rosuvastatin - continue #GERD- Pantoprazole - continue Dispo: Admit, PCU VTE Prophylaxis: On Warfarin - hold for now, restart once INR in normal range This document was dictated utilizing [employer]. Please excuse any grammatical errors that may be secondary to use of this software. 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 Patient states that the night CA[employer]ING [employer] LOCKER ROOM SERVICER she could not sleep because she felt that her heart rate was elevated and she continued to check her heart rate via her pulse ox finger monitor and reports that her heart rate stayed in the 100s. She got approximately 1 to 2 hours of sleep secondary to checking this continuously. She did not feel any palpitations but does report some shortness of breath with the elevated heart rate. Patient states that she has AG at baseline, and that her SOB that occurred with elevated heart rate did not feel different from this. She reports that she continued to check her heart rate throughout the day, and it got into the 130s at its maximum heart rate so she decided to come to the hospital. She is without additional symptoms to include chest pain, cough, palpitations, lightheadedness, or dizziness. She takes her warfarin as scheduled which is 1 mg every day except for on Wednesdays where she takes 2 mg. She reports that she is without infectious symptoms, no LUTS/URI symptoms/fever or chills. She was seen by her secretary bookkeeper the week of and discontinued from flecainide and increased on her metoprolol dosing. She reports requiring flecainide in the past but was discontinued from it at that time as well. She is unable to tell me why it was discontinued. She reports that she has a history of EMILY, does not wear CPAP at night but has a patch that she puts around her face. She thinks that her nose got blocked and this is what triggered her A-fib. Again, patient denies LUTS. Denies chest pain, abdominal pain, N/V/D/C, numbness/tingling, fever/chills, weakness, syncope, or falls. She has been taking her medications as prescribed. She had a steroid injection into her knee on 05/23/2025. No other changes to her daily regimens. ED evaluation reveals CBC without leukocytosis or leukopenia, H&H 16.6/50.6, platelets stable; PT/INR 41.3/4.2 respectively, APTT 32; CMP glucose 110; troponin 13.5; UA without bacteria does have presence of LE and WBC; COVID/flu/RSV negative; CXR pending official read; EKG A-fib with RVR at 117 bpm.; Provided with Lopressor 5 mg IV, diltiazem 10 mg IV, and then started on diltiazem drip in ED. Please see Dr. Posadas's attestation for adjustments/additions to treatment plan. Allergies Allergy/AdvReac Type Severity Reaction Status Date / Time Penicillins Allergy Severe RASH Verified 05/30/25 19:36 Home Medications Medication Instructions Recorded Confirmed Type multivitamin 1 tab PO DAILY 12/20/18 05/30/25 History acetaminophen 500 mg tablet 500 mg PO Q6H PRN Pain 11/30/23 05/30/25 History lisinopril 5 mg tablet 2.5 mg PO DAILY 05/12/25 05/30/25 History warfarin 2 mg tablet 2 mg PO DIRECTED 05/22/25 05/30/25 History cholecalciferol (vitamin D3) 25 25 mcg PO DAILY 05/25/25 05/30/25 History mcg (1,000 unit) tablet (Vitamin D3) cyanocobalamin (vitamin B-12) 50 50 mcg PO DAILY 05/25/25 05/30/25 History mcg tablet metoprolol tartrate 50 mg tablet 50 mg PO BID #180 tabs 05/25/25 05/30/25 Rx pantoprazole 20 mg tablet,delayed 20 mg PO DAILY 05/25/25 05/30/25 History release rosuvastatin 10 mg tablet 10 mg PO DAILY 05/25/25 05/30/25 History Past Med/Surg History Problem List (Updated 05/30/25 @ 21:51 by Cesar Castañeda M.D.) Atrial fibrillation with rapid ventricular response (Acute) Elevated INR Edema Acute UTI (Acute) Tachycardia (Acute) Atrial fibrillation (Acute) Obesity (BMI 30-39.9) Scalp lesion Actinic keratosis Decreased exercise tolerance snf current use of anticoagulant Reactive airway disease Vitamin D deficiency AG (dyspnea on exertion) Colloid cyst of third ventricle AF (paroxysmal atrial fibrillation) Pulsatile tinnitus, bilateral Nodule of right lung CAD in [place] artery Cerebral aneurysm Generalized anxiety disorder HLD (hyperlipidemia) EMILY (obstructive sleep apnea) GERD (gastroesophageal reflux disease) Hypertension Medical History Cough B12 deficiency History of basal cell carcinoma of skin Surgical History S/P Mohs surgery for basal cell carcinoma H/O oral surgery H/O dilation and curettage History of cholecystectomy Family History Father Alcohol abuse Brother Alcohol abuse Mother Heart disease Diabetes Pancreatic cancer Aunt Breast cancer Family/Other Breast cancer COUSIN Denies family history of Ovarian cancer Prostate cancer Myocardial infarction Colorectal cancer Social History Smoking Status: Never smoker Second Hand Exposure: No; Do You Dip or Chew Tobacco: No; Hx Alcohol Use: No Hx Substance Use: No Preferred Language: Azerbaijani Communication Ability: Effective Visual Impairment: No Limitations Hearing Ability: Normal Certified Ophthalmic Technologist Required: No Beliefs That Will Affect Care: None marital status: Current Living Situation: Significant Other current occupational status: retired How many Children do You have: 1 Feels Safe at Home: Yes Safety Concerns: Feels Safe At This Time Childhood Exposure to Second-Hand Smoke: No Diet: regular Diet Comment: Regular caffeine: No during the past year weight has: remained stable Dental Care, Regularly: Yes Physical Activity Frequency: 1-2 Times per Week Physical Activity Frequency Comment: House work Seatbelt Use: always Sunscreen Use: Yes Assistive Devices: Glasses Review of Systems Review of Systems: All systems reviewed & are unremarkable except as noted in Subjective Physical Exam Physical Exam: General: No acute distress Skin: Warm and dry Head: Normocephalic, atraumatic Eyes: PERRL, conjunctivae clear, sclera non-icteric; wearing glasses ENT: External ear and ear canal without swelling; nose atraumatic; good dentition, tongue normal appearance, pharynx normal Neck: Supple, no LAD Cardio: Irregularly irregular rhythm, tachycardia (100s-110s), no M/G/R, S1 and S2 normal Resp: No respiratory distress, Lungs CTA in all lobes bilaterally, no wheezes, rales, or rhonchi Abdomen: Soft, symmetric, nontender; No masses or hepatosplenomegaly; Bowel sounds normoactive MSK: No deformities; pulses palpable and equal; trace pitting edema BLE to knees Neuro: Awake, alert; Sensation intact bilaterally; CN grossly intact Psych: Appropriate mood and affect; good judgement and insight. Results & Data Results & Data Vital Signs (Past 12 Hours) Vital Signs Temp Pulse Pulse Resp BP BP Pulse Ox 05/30/25 19:44 108 H 18 149/103 H 97 05/30/25 19:44 97 05/30/25 19:00 117 H 16 141/100 H 95 05/30/25 18:57 116 H 139/97 05/30/25 18:24 115 H 05/30/25 18:05 36.5 C 117 H 18 141/90 H 94 O2 Del Method 05/30/25 19:44 Room Air 05/30/25 19:44 Room Air 05/30/25 19:00 Room Air 05/30/25 18:57 05/30/25 18:24 05/30/25 18:05 Room Air Laboratory Results 05/30/25 19:37 Urine Culture - Pending Urine,Clean Catch 05/30/25 05/30/25 19:37 18:20 WBC 8.67 RBC 5.50 H Hgb 16.6 H Hct 50.6 H MCV 92.0 MCH 30.2 MCHC 32.8 RDW Std Deviation 44.2 RDW Coeff of Angie 12.9 Plt Count 259 MPV 9.5 Immature Gran % (Auto) 0.2 Neut % (Auto) 66.3 Lymph % (Auto) 21.8 [place] % (Auto) 9.6 Eos % (Auto) 1.2 Baso % (Auto) 0.9 Neut # (Auto) 5.75 Lymph # (Auto) 1.89 [place] # (Auto) 0.83 H Eos # (Auto) 0.10 Baso # (Auto) 0.08 Immature Gran # (Auto) 0.02 PT 41.3 H INR 4.2 H APTT 32 H PTT Ratio 1.2 Sodium 140 Potassium 4.1 Chloride 104 Carbon Dioxide 29 Anion Gap 7 BUN 12 Creatinine 0.74 Est Cr Clr Drug Dosing 84.3 eGFR 84.32 BUN/Creatinine Ratio 16.2 Glucose 110 H Calcium 9.3 Magnesium 1.9 Total Bilirubin 0.9 AST 26 ALT 14 Alkaline Phosphatase 57 Troponin I High Sens 13.5 Total Protein 6.9 Albumin 3.7 Globulin 3.2 Albumin/Globulin Ratio 1.2 Urine Color Yellow Urine Appearance Clear Urine pH 6.5 Ur Specific [place] 1.012 Urine Protein Negative Urine Glucose (UA) Negative Urine Ketones Negative Urine Blood Trace H Urine Nitrite Negative Urine Bilirubin Negative Urine Urobilinogen Negative Ur Leukocyte Esterase 1+ H Urine WBC (Auto) 11-20 H Urine RBC (Auto) 3-5 H U Hyaline Cast (Auto) 0-2 U Epithel Cells (Auto) 3-5 H Urine Bacteria (Auto) None Seen Urine Comment Medications Administered Lopressor 5 mg IV Diltiazem 10 mg IV Diltiazem drip ECG Additional Comments: Lopressor 5 mg IV Diltiazem 10 mg IV Diltiazem drip Code Status & VTE Plan Code Status Full Supervising Physician Co-Signing Physician Notes Patient seen and examined, chart reviewed, case discussed with HARLEY Jay and I agree with the assessment and plan as above. In brief, patient is a 75yo female with atrial fibrillation. Patient was previously on Flecainide which was recently discontinued on 05/25/25. She is on Metoprolol, recently increased to 50mg po BID, She is on anticoagulation with Coumadin and reports compliance. No chest pain, SOB, dizziness or syncope Recent UTI s/p 1 week of antibiotic therapy, no further symptoms On exam patient is resting comfortably, NAD +S1/S2, irregularly irregular, tachycardic with HR 110's Lungs CTA Abd soft, NT/ND No edema Labs and images reviewed Elevated Hgb at 16.6 and Hct at 50.6 INR elevated at 4.2 - no bleeding reported Electrolytes acceptable Assessment/Plan - poorly controlled atrial fibrillation. Diltiazem gtt started in the ER. Patient still with rates 110's -Continue Diltiazem gtt -Will give a gentle liter of LR at 80mL/hr - ?dehydration playing role given recent UTI, elevated H/H possibly due to hemoconcentration -Follow urine culture -Check 2D echo -Hold Coumadin for now given supratherapeutic INR - repeat INR in AM - no bleeding -Remainder as above PG Care Time/CCT Total # of Minutes Spent Total Time Spent with Patient: Total time spent is greater than 50% in coordination of care (as documented) at patient's floor/unit and/or counseling patient: Coding Level of Care Code 38863 INT INP/OBS CARE 3/75MIN Diagnoses Atrial fibrillation with RVR I48.91 Elevated INR R79.1
[2025-05-30 20:12] LABS: Influenza A virus by PCR Negative (Neg); Influenza B virus by PCR Negative (Neg); SARS CoV2 RNA(COVID-19) Ceph NEGATIVE (Negative)
[2025-05-30] MEDS ORDERED: MELATONIN 3 MG TAB PO PRN (21:49)
[2025-05-30] MEDS ORDERED: POLYETHYLENE (MIRALAX) 17 GM PACK PO PRN (21:49)
[2025-05-30] MEDS ORDERED: ACETAMINOPHEN 325 MG TAB PO PRN (21:49)
[2025-05-30] MEDS ORDERED: ONDANSETRON INJ 2 MG/ML 2 ML VIAL IV PRN (21:49)
[2025-05-30] MEDS: STAT IV Infusion **Titration per Protocol STA (21:59)
[2025-05-31] MEDS: LACTATED RINGER'S 1,000 ML IV SCH (02:10)
[2025-05-31 06:45] LABS: INR 3.6 (0.9-1.1); Prothrombin Time 35.0 Seconds (9.0-12.0)
--- NOTE | 2025-05-31 08:22 | XRay Report ---
XR chest 1V portable CLINICAL HISTORY: Dysrhythmia COMPARISON STUDY: 05/22/2025 FINDINGS: Stable mild cardiomegaly without pulmonary vascular congestion. Stable mild stranding opaci ty in the lung bases. No lobar consolidation or pleural effusion seen. No pneumothorax. IMPRESSION: Stable exam. ACT 112: Negative or not required by law. Electronically signed by: Mark Mars M.D. 05/31/2025 8:20 AM
[2025-05-31] MEDS: ROSUVASTATIN CALCIUM 10 MG TAB PO SCH (08:57)
--- NOTE | 2025-05-31 10:16 | Cardiology Consultation ---
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 Will start amiodarone to help maintain HR control. Will plan on doing DC Cardioversion in the am to achieve NSR. She may be a candidate for Afib ablation. Will have to adjust her dose of coumadin given interaction with amio. I will review with the [facility] team to do the procedure in am. If they are unable to do the cardioversion, I will be able to in am. History of Present Illness Reason for Consultation: eval atrial fibrillation Attending Physician: Jaimie Barnett MD History of Present Illness Ms. Alexis is a very pleasant 75-year-old female with a history significant for paroxysmal atrial fibrillation, mild nonobstructive CAD, hypertension and dyslipidemia. Sleep apnea on CPAP QHS. She is known well to Dr. Beasley. She was first diagnosed with atrial fibrillation in October of 2016. She was started on flecainide in February of 2017, after her third documented episode of atrial fibrillation with rapid ventricular response. She feels palpitations with atrial fibrillation. She has been on flecanide up until last week when this was DC due to increasing episodes of Afib and thoughts that the medications was no longer effective. After DC of flecanide, her metoprolol dose was increas ed. She has had the following studies/procedures and these were reviewed with her: 1. Cardiac catheterization [facility] 11/24/2014: Proximal LAD 20-30%. Normal LV systolic function. 2. Echo 02/07/2017: Normal LV size, wall motion, systolic function. EF 60- 65%. No LVH. No significant diastolic dysfunction. Moderate left atrial dilation. Mild right atrial dilation. No significant valvular abnormalities. Normal RVSP. 3. Dobutamine stress echo 09/27/2017: Negative for ischemia at 88% MPHR. No chest pain. 4. Event monitor 06/09/2019 to 06/15/2019: Sinus rhythm. No arrhythmia. Heart racing occurred during normal sinus rhythm. 5. Echo 02/23/2020: Normal LV size, wall motion, systolic function. EF 55-60%. Mild LVH. Moderate left atrial dilation. No significant valvular abnorm alities. Normal RVSP. 6. Nuclear stress 07/21/2020: Negative for ischemia. EF 70%. Normal wall motion and LV systolic function. 7. PFT's 09/27/2020: Normal spirogram with significant response to inhaled bronchodilator. Moderate air trapping. Normal diffusion capacity. 8. Event monitor 11/12/2023 to 11/25/2023: Sinus rhythm. Average HR 67 (50 to 117 bpm). No arrhythmia. PVCs. 2 patient triggered events (skipped beat). One of the 2 events correlated with isolated PVC. 9. Nuclear stress 12/04/2023 [facility]: Negative for ischemia. EF 54%. 10. Echo 01/01/2025 [facility]: Normal LV size, wall motion, systolic function. EF 55- 60%. No LVH. Moderate left atrial dilation. Mild MR. She is here today for hospital follow-up. She was seen in the ER on 05/22/[address] Haynes for atrial fibrillation she noted elevated heart rates at home with heart rate 90 to 120 bpm. She had been taking flecainide and her INR has been therapeutic. In the ER, ECG demonstrated atrial fibrillation. Dr. Dallas gotti ontacted me via telephone and it was recommended to give flecainide 200 mg x 1 p.o. He did so and monitored her for a few hours. She remained in atrial fibrillation. Flecainide was increased to 100 mg twice daily and she was discharged home. She was found to have UTI and placed on antibiotics by the ER. Since home, heart rate remains elevated ranging 102 to 110 bpm on her pulse oximeter. In the past, heart rate would typically run 60 to 70 bpm while in sinus. She states that she may feel little bit weaker while in atrial fibrillation. She has had low energy in general for 4 months and has chronic but stable dyspnea on exertion with certain activities. She denies chest pain, syncope, near syncope, melena, hematochezia, hematuria. She has lower extremity edema which is chronic but a little worsened over time. Blood pressure at home has been well-controlled. She was started on po and then IV CCB while here, but she remained in Afib. We discussed doing DC cardioversion to try to get her back in NSR. She is agreeable to this. I will review with the [facility] team to see if they are available in the am to do the procedure. Allergies Allergy/AdvReac Type Severity Reaction Status Date / Time Penicillins Allergy Severe RASH Verified 05/30/25 19:36 Home Medications Medication Instructions Recorded Confirmed Type multivitamin 1 tab PO DAILY 12/20/18 05/30/25 History acetaminophen 500 mg tablet 500 mg PO Q6H PRN Pain 11/30/23 05/30/25 History lisinopril 5 mg tablet 2.5 mg PO DAILY 05/12/25 05/30/25 History warfarin 2 mg tablet 2 mg PO DIRECTED 05/22/25 05/30/25 History cholecalciferol (vitamin D3) 25 25 mcg PO DAILY 05/25/25 05/30/25 History mcg (1,000 unit) tablet (Vitamin D3) cyanocobalamin (vitamin B-12) 50 50 mcg PO DAILY 05/25/25 05/30/25 History mcg tablet metoprolol tartrate 50 mg tablet 50 mg PO BID #180 tabs 05/25/25 05/30/25 Rx pantoprazole 20 mg tablet,delayed 20 mg PO DAILY 05/25/25 05/30/25 History release rosuvastatin 10 mg tablet 10 mg PO DAILY 05/25/25 05/30/25 History Patient History Medical History Cough B12 deficiency History of basal cell carcinoma of skin Surgical History S/P Mohs surgery for basal cell carcinoma H/O oral surgery H/O dilation and curettage History of cholecystectomy Family History Father Alcohol abuse Brother Alcohol abuse Mother Heart disease Diabetes Pancreatic cancer Aunt Breast cancer Family/Other Breast cancer COUSIN Denies family history of Ovarian cancer Prostate cancer Myocardial infarction Colorectal cancer Social History Smoking Status: Never smoker Second Hand Exposure: No; Do You Dip or Chew Tobacco: No; Hx Alcohol Use: No Hx Substance Use: No Preferred Language: Lebanese Communication Ability: Effective Visual Impairment: No Limitations Hearing Ability: Normal Social And Human Services Assistant Required: No Beliefs That Will Affect Care: None marital status: Current Living Situation: Significant Other current occupational status: retired How many Children do You have: 1 Feels Safe at Home: Yes Safety Concerns: Feels Safe At This Time Childhood Exposure to Second-Hand Smoke: No Diet: regular Diet Comment: Regular caffeine: No during the past year weight has: remained stable Dental Care, Regularly: Yes Physical Activity Frequency: 1-2 Times per Week Physical Activity Frequency Comment: House work Seatbelt Use: always Sunscreen Use: Yes Assistive Devices: Glasses Physical Exam Physical Exam: AAO x 3 Cardiovascular: irregular, tachy no murmurs appreciated Results & Data Vital Signs (Past 12 Hours) Vital Signs Temp Pulse Resp BP Pulse Ox O2 Del Method 05/31/25 09:04 93 H 103/71 05/31/25 08:48 Room Air 05/31/25 08:41 94 H 05/31/25 08:00 36.9 C 93 H 19 116/70 94 Room Air 05/31/25 04:15 36.5 C 109 H 20 127/85 96 Room Air 05/31/25 01:04 36.4 C L 100 H 20 124/80 96 Room Air 05/31/25 00:00 100 H 05/30/25 23:00 96 H Laboratory Results Abnormal lab results 05/31/25 Range/Units 05:27 PT 35.0 H (9.0-12.0) Seconds INR 3.6 H (0.9-1.1)
--- NOTE | 2025-05-31 13:20 | Hospitalist Progress Note ---
Date of Service May 31, 2025 Assessment & Plan (1) Atrial fibrillation with RVR: (2) Elevated INR: Plan 75-year-old female PMHx A-fib on warfarin, CAD, actinic keratosis, anxiety, HLD, EMILY, GERD, and HTN presenting for elevated heart rate on the day of arrival on 05/30/2025. Evaluation does reveal elevated INR of 4.2 and UA suspicious of a possible infection versus contamination, however culture is still pending and patient is without symptoms. COVID/flu/RSV and CXR official read are still pending. Admission for A-fib RVR. #A-fib RVR H/o Afib, previously on flecainide but discontinued by electronic publishing specialist and placed on metoprolol twice daily for rate control as compared to rhythm control (last visit 05/25/2025). No clear infection or identifiable cause of onset of A-fib with RVR at this time. CBC/BMP stable. recent TSH WNL; Trop 13.5. EKG on admission w/ A fib RVR on 117 bpm Echo: EF 55-60%; Moderate mitral regurg. Cardiology consulted --> discussed via tiger 05/31, recommending d/c diltiazem drip & start amio w/ loading dose. Plan for cardioversion in AM, did want a reduced dose of warfarin given 05/31 which was discussed w/ pharmacy. s/p ditiazem drip, now on amio drip. HR still in the 110s-120s #Elevated INR Warfarin 1mg daily and 2mg every Sunday; no bleeding reported. No dietary adjustments, follows with PCP monthly for INR checks. INR 3.6 0.5mg Warfarin dose given 05/31. Recheck in AM but may require dose adjustment. #HTN- Lisinopril - continue #HLD- Rosuvastatin - continue #GERD- Pantoprazole - continue Dispo: Admit, PCU VTE Prophylaxis: On Warfarin Admission and Anticipated Discharge Date Admission Date: May 30, 2025 Andres Weiss was seen & examined this morning. She reports that she is feeling okay today. Denies chest pain, palpitations, or shortness of breath. Reports she is meeting with her [facility] electronic publishing specialist in the AM. Physical Exam Physical Exam: General: NAD, VS: BP 114/75; P119; R17; T36.6C Resp: normal respiratory effort, lungs clear to auscultation CV: irregularly irregular, tachycardic. Extremities: Moves all extremities, no edema Neuro: A&O x3 Skin: intact, no lesions noted Results & Data Results & Data Vital Signs (Past 12 Hours) Vital Signs Temp Pulse Pulse Resp BP Pulse Ox O2 Del Method 05/31/25 11:54 36.6 C 93 H 17 93/68 L 93 Room Air 05/31/25 09:04 93 H 103/71 05/31/25 08:48 Room Air 05/31/25 08:41 94 H 05/31/25 08:00 36.9 C 93 H 19 116/70 94 Room Air 05/31/25 07:00 100 H 05/31/25 04:15 36.5 C 109 H 20 127/85 96 Room Air PG Care Time/CCT Total # of Minutes Spent Total Time Spent with Patient: Total time spent is greater than 50% in coordination of care (as documented) at patient's floor/unit and/or counseling patient: Coding Level of Care Code 20006 SUB INP/OBS CARE 3/50MIN Diagnoses Atrial fibrillation with RVR I48.91 Elevated INR R79.1
[2025-05-31] MEDS: LACTATED RINGER'S 1,000 ML IV ONE (14:01)
[2025-05-31] MEDS ORDERED: AMIODARONE IV BOLUS & DRIP IV STA (15:26)
[2025-05-31] MEDS ORDERED: STAT IV Infusion **Titration per Protocol STA (15:26)
[2025-05-31] MEDS ORDERED: 0.2 MICRON FILTER SET 1 EACH IV STA (15:26)
[2025-05-31] MEDS: AMIODARONE / D5W 150 MG/100 ML BAG IV STA (16:33)
[2025-05-31] MEDS: WARFARIN SOD 0.5 MG TAB PO SCH (16:36)
[2025-05-31] MEDS: AMIODARONE / D5W 360 MG/200 ML BAG IV ONE (16:48)
[2025-05-31] MEDS: AMIODARONE / D5W 360 MG/200 ML BAG IV SCH (22:26)
[2025-06-01 06:01] LABS: Hematocrit (blood only) 41.6 % (37.0-47.0); Hemoglobin 14.0 g/dL (12.0-16.0); Mean Corpuscular Hemoglobin 30.8 pg (25.0-34.0); Mean Corpuscular Volume 91.6 fL (80.0-100.0); Platelet Count 191 K/uL (130-400); RDW Standard Deviation 43.9 fL (36.4-46.3); Red Blood Count 4.54 M/uL (4.20-5.40); White Blood Count 5.86 K/ul (4.8-10.8)
[2025-06-01 06:20] LABS: Anion Gap 6.0 (3-11); Blood Urea Nitrogen 9.0 mg/dl (6-23); Calcium 8.3 mg/dl (8.6-10.3); Carbon Dioxide 26.0 mmol/L (21-32); Chloride 108.0 mmol/L (98-107); Creatinine Clr Calc Pharmacy 90.1 ml/min; Glucose 105.0 mg/dl (70-99(Fasting)); Potassium 3.6 mmol/L (3.5-5.1); Sodium 140.0 mmol/L (136-145)
[2025-06-01 06:33] LABS: INR 2.7 (0.9-1.1); Prothrombin Time 27.4 Seconds (9.0-12.0)
--- NOTE | 2025-06-01 10:41 | Electrocardiogram Report ---
Test Reason : Blood Pressure : */* mmHG Vent. Rate : 117 BPM Atrial Rate : * BPM P-R Int : * ms QRS Dur : 98 ms QT Int : 350 ms P-R-T Axes : * -18 96 degrees QTcB Int : 488 ms Atrial fibrillation with rapid ventricular response Nonspecific ST and T wave abnormality Long QTc Abnormal ECG When compared with ECG of 25-May-2025 14:54, (unconfirmed) Left bundle branch block is no longer Present Confirmed by Mariposa Burton (Raheem) on 06/01/2025 10:41:22 AM Referred By: REFERRED SELF Confirmed By: Mariposa Burton
--- NOTE | 2025-06-01 13:05 | Cardiology Progress Note ---
Date of Service June 01, 2025 Assessment & Plan (1) Atrial fibrillation with rapid ventricular response: Plan: -As above, the patient is not interested in any electrical cardioversion today. -She may reconsider tomorrow after another 24 hours of intravenous amiodarone. -Would add beta-marylin therapy to her intravenous amiodarone. -INR remains therapeutic. (2) CAD in [place] artery: Plan: -Proximal LAD 23% stenosis, November 2014. -Quiescent on medical management. (3) Hypertension: Plan: - Adequate control on current regimen. Admission and Anticipated Discharge Date Admission Date: May 30, 2025 Subjective The patient is resting comfortably in bed without complaints of chest pain, dyspnea, or palpitations. She is not anxious to undergo an electrical cardioversion today. Her son is present at the bedside. Physical Exam Physical Exam: In general this is an obese white female in no acute distress. HEENT exam is negative. Neck reveals normal carotid upstrokes without bruits. Jugular venous pressure is flat at 90. There is no thyromegaly. Cardiovascular exam reveals an irregularly irregular rhythm with distant heart sounds. No obvious murmurs. Lungs are clear without rales, rhonchi, or wheezes. Abdomen is soft without bruits. Extremities reveal intact radial artery pulses bilaterally. There is trace peripheral edema. Results & Data Vital Signs (Past 12 Hours) Vital Signs Temp Pulse Pulse Resp BP Pulse Ox O2 Del Method 06/01/25 11:53 99 H 06/01/25 11:49 36.6 C 117 H 18 123/85 96 Room Air 06/01/25 09:40 Room Air 06/01/25 07:14 36.6 C 100 H 17 133/87 94 Room Air 06/01/25 03:37 36.8 C 105 H 22 119/79 95 Room Air Diagnostic Findings mechanic/welder notes atrial fibrillation with a ventricular sponsor of 100- 115 bpm. PG Care Time/CCT Total # of Minutes Spent Total Time Spent with Patient: Total time spent is greater than 50% in coordination of care (as documented) at patient's floor/unit and/or counseling patient: Coding Level of Care Code 48416 SUB INP/OBS CARE 3/50MIN Diagnoses Atrial fibrillation with rapid ventricular response I48.91 CAD in [place] artery I25.10 Primary hypertension I10 Hypertension type: primary hypertension (3) Hypertension Hypertension type: primary hypertension Qualified Code(s): I10 - Essential (primary) hypertension
--- NOTE | 2025-06-01 14:13 | Hospitalist Progress Note ---
Date of Service June 01, 2025 Assessment & Plan (1) Atrial fibrillation with RVR: (2) Elevated INR: Plan 75-year-old female PMHx A-fib on warfarin, CAD, actinic keratosis, anxiety, HLD, EMILY, GERD, and HTN presenting for elevated heart rate on the day of arrival on 05/30/2025. Evaluation does reveal elevated INR of 4.2 and UA suspicious of a possible infection versus contamination, however culture is still pending and patient is without symptoms. COVID/flu/RSV and CXR official read are still pending. Admission for A-fib RVR. #A-fib RVR H/o Afib, previously on flecainide but discontinued by roving department supervisor and placed on metoprolol twice daily for rate control as compared to rhythm control (last visit 05/25/2025). No clear infection or identifiable cause of onset of A-fib with RVR at this time-->UA possible suspicious for infection, however UC with NG CBC/BMP stable, Mg WNL, recent TSH WNL; Trop 13.5. EKG on admission w/ A fib RVR on 117 bpm Echo: EF 55-60%; Moderate mitral regurg. Cardiology consult--->Cardizem gtt d/c'ed, oral Cardizem d/c'ed, Amiodarone infusion started 05/31/25, patient has elected not to proceed with elective CV and will be re-evaluated in the am, add on metoprolol tartrate for rate control as rate has been low 100s/110s trend Mg #Elevated INR Warfarin 1mg daily and 2mg every Sunday; no bleeding reported. No dietary adjustments, follows with PCP monthly for INR checks. INR 2.7 Coumadin 1mg po this evening, adjust dose as needed considering [place] #HTN Lisinopril #HLD Rosuvastatin #GERD Pantoprazole Dispo: Continued admission on PCU VTE Prophylaxis: On Warfarin Admission and Anticipated Discharge Date Admission Date: May 30, 2025 Subjective Sitting upright in bed today. She has no complaints of CP, SOB or palpitations. She has no acute complaints. Tele: AF 100s/110s Review of Systems Review of Systems: All systems reviewed & are unremarkable except as noted in Subjective Physical Exam Physical Exam: GENERAL APPEARANCE: A&O. Sitting comfortably in bed. NAD. SKIN: Normal color without rashes or lesions. Normal turgor. HEENT: Head AT/NC. Buccal mucosa is moist and pink. NECK: No jugular venous distention. No thyroid enlargement. There is no lymphadenopathy. HEART: Irregularly irregular. LUNGS: Normal inspiratory effort. CTA without w/r/r. ABDOMEN: No guarding or rigidity. Normoactive BS in all four quadrants. Abdomen soft and NT. MSK: No bony gross/deformities throughout. ROM intact. EXTREMITIES: No edema, No peripheral cyanosis. Neuro: CN 2-12 grossly intact. No focal neuro deficits PSYCHIATRIC: Normal affect. Eye contact is good. Speech is normal rate and content. Responses are appropriate. Results & Data Results & Data Vital Signs (Past 12 Hours) Vital Signs Temp Pulse Pulse Resp BP Pulse Ox O2 Del Method 06/01/25 11:53 99 H 06/01/25 11:49 36.6 C 117 H 18 123/85 96 Room Air 06/01/25 09:40 Room Air 06/01/25 07:14 36.6 C 100 H 17 133/87 94 Room Air 06/01/25 03:37 36.8 C 105 H 22 119/79 95 Room Air Laboratory Results Labs reviewed: CBC, CMP, PT/INR PG Care Time/CCT Total # of Minutes Spent Total Time Spent with Patient: Total time spent is greater than 50% in coordination of care (as documented) at patient's floor/unit and/or counseling patient: Coding Level of Care Code 29089 SUB INP/OBS CARE 3/50MIN Diagnoses Atrial fibrillation with RVR I48.91 Elevated INR R79.1
[2025-06-01] MEDS: WARFARIN SOD 1 MG TAB PO ONE (15:20)
[2025-06-01] MEDS ORDERED: WARFARIN SOD 1 MG TAB PO SCH (16:00)
[2025-06-01] MEDS: METOPROLOL TARTRATE 25 MG TAB PO SCH (19:55)
[2025-06-02 06:15] LABS: Hematocrit (blood only) 44.4 % (37.0-47.0); Hemoglobin 14.7 g/dL (12.0-16.0); Immature Granulocytes # (auto) 0.02 K/uL (0.01-0.20); Immature Granulocytes % (auto) 0.2 %; Mean Corpuscular Hemoglobin 30.2 pg (25.0-34.0); Mean Corpuscular Volume 91.4 fL (80.0-100.0); Platelet Count 206 K/uL (130-400); RDW Standard Deviation 43.8 fL (36.4-46.3); Red Blood Count 4.86 M/uL (4.20-5.40); White Blood Count 8.14 K/ul (4.8-10.8)
[2025-06-02 06:31] LABS: Anion Gap 8.0 (3-11); Blood Urea Nitrogen 11.0 mg/dl (6-23); Calcium 8.5 mg/dl (8.6-10.3); Carbon Dioxide 25.0 mmol/L (21-32); Chloride 108.0 mmol/L (98-107); Creatinine Clr Calc Pharmacy 87.5 ml/min; Glucose 115.0 mg/dl (70-99(Fasting)); Magnesium 1.8 mg/dl (1.7-2.4); Potassium 3.7 mmol/L (3.5-5.1); Sodium 141.0 mmol/L (136-145)
[2025-06-02 11:24] LABS: INR 2.0 (0.9-1.1); Prothrombin Time 20.5 Seconds (9.0-12.0)
[2025-06-02] MEDS ORDERED: LIDOCAINE 2% 2 ML VIAL/AMP(20MG/ML) INFIL ONE (12:41)
[2025-06-02] MEDS ORDERED: PROPOFOL IV EMULSION 10 MG/ML 20 ML VIAL IV ONE (12:41)
--- NOTE | 2025-06-02 12:55 | Anesthesiology Consultation ---
Date of Service June 02, 2025 Assessment & Plan Chart Review Chart Review: Acceptable Risk for Surgery Consults Requested none History Surgery Operation Date: 06/02/25 13:00 Proposed Procedures p Cardioversion - Jeffery Leong MD Height/Weight Height: 5 ft 7 in Weight: 113 kg Allergies Allergy/AdvReac Type Severity Reaction Status Date / Time Penicillins Allergy Severe RASH Verified 05/30/25 19:36 Medications Home Medications Medication Instructions Recorded Confirmed Last Taken multivitamin 1 tab PO DAILY 12/20/18 05/30/25 05/30/25 acetaminophen 500 mg tablet 500 mg PO Q6H PRN Pain 11/30/23 05/30/25 Unknown lisinopril 5 mg tablet 2.5 mg PO DAILY 05/12/25 05/30/25 05/30/25 warfarin 2 mg tablet 2 mg PO DIRECTED 05/22/25 05/30/25 05/29/25 cholecalciferol (vitamin D3) 25 25 mcg PO DAILY 05/25/25 05/30/25 05/30/25 mcg (1,000 unit) tablet (Vitamin D3) cyanocobalamin (vitamin B-12) 50 50 mcg PO DAILY 05/25/25 05/30/25 05/30/25 mcg tablet metoprolol tartrate 50 mg tablet 50 mg PO BID #180 tabs 05/25/25 05/30/25 05/30/25 08:00 pantoprazole 20 mg tablet,delayed 20 mg PO DAILY 05/25/25 05/30/25 05/30/25 release rosuvastatin 10 mg tablet 10 mg PO DAILY 05/25/25 05/30/25 05/30/25 Active Medications Generic Name Dose Route Start Last Admin Trade Name Freq PRN Reason Stop Dose Admin Amiodarone HCl/Dextrose 360 mg in 200 mls @ 16.667 mls/hr 05/31/25 21:30 06/02/25 09:55 Nexterone / D5w IV 06/30/25 21:29 0.5 mg/min .Q12H STACEY 16.7 mls/hr Administration 0.5 MG/MIN Lisinopril 2.5 mg 05/31/25 09:00 06/02/25 09:51 Lisinopril 2.5 Mg Tab PO 06/30/25 08:59 2.5 mg DAILY STACEY Administration Metoprolol Tartrate 25 mg 06/01/25 21:00 06/02/25 09:51 Metoprolol Tartrate 25 Mg Tab PO 07/01/25 20:59 25 mg BID STACEY Administration Pantoprazole Sodium 20 mg 05/31/25 09:00 06/02/25 09:51 Pantoprazole 40 Mg Tab PO 06/30/25 08:59 20 mg DAILY STACEY Administration Rosuvastatin Calcium 10 mg 05/31/25 09:00 06/02/25 09:51 Rosuvastatin Calcium 10 Mg Tab PO 06/30/25 08:59 10 mg DAILY STACEY Administration Past Medical History Medical History Cough B12 deficiency History of basal cell carcinoma of skin Past Family History Family History Father Alcohol abuse Brother Alcohol abuse Mother Heart disease Diabetes Pancreatic cancer Aunt Breast cancer Family/Other Breast cancer COUSIN Denies family history of Ovarian cancer Prostate cancer Myocardial infarction Colorectal cancer Past Surgical History Surgical History S/P Mohs surgery for basal cell carcinoma H/O oral surgery H/O dilation and curettage History of cholecystectomy Social History Smoking Status: Never smoker Do You Dip or Chew Tobacco: No Hx Alcohol Use: No Hx Substance Use: No Physical Exam Vital Signs Last Vital Signs Temp 36.6 C 06/02/25 11:57 Pulse 119 H 06/02/25 11:57 Resp 18 06/02/25 11:57 BP 109/77 06/02/25 11:57 Pulse Ox 96 06/02/25 11:57 O2 Del Method Room Air 06/02/25 11:57 Testing Laboratory Results 06/02/25 05:56 06/02/25 05:56 PT 20.5 Seconds (9.0-12.0) H 06/02/25 10:08 INR 2.0 (0.9-1.1) H 06/02/25 10:08 APTT 32 Seconds (21-31) H 05/30/25 18:20 Urine Color Yellow 05/30/25 19:37 Urine Appearance Clear (Clear) 05/30/25 19:37 Urine pH 6.5 (4.5-7.5) 05/30/25 19:37 Ur Specific [place] 1.012 (1.000-1.030) 05/30/25 19:37 Urine Protein Negative (Negative) 05/30/25 19:37 Urine Glucose (UA) Negative (Negative) 05/30/25 19:37 Urine Ketones Negative (Negative) 05/30/25 19:37 Urine Nitrite Negative (Negative) 05/30/25 19:37 Ur Leukocyte Esterase 1+ (Negative) H 05/30/25 19:37 Urine WBC (Auto) 11-20 /hpf (0-5) H 05/30/25 19:37 Urine RBC (Auto) 3-5 /hpf (0-2) H 05/30/25 19:37 U Hyaline Cast (Auto) 0-2 /lpf (0-2) 05/30/25 19:37 U Epithel Cells (Auto) 3-5 /hpf (0-2) H 05/30/25 19:37 Urine Bacteria (Auto) None Seen (None Seen) 05/30/25 19:37 05/30/25 19:37 Urine Culture - Final Urine,Clean Catch No growth - less than 1,000 colonies/mL.
--- NOTE | 2025-06-02 13:10 | History & Physical Bridge Note ---
Date of Service June 02, 2025 History & Physical Bridge Note I have examined the patient, reviewed the History & Physical and in the interval since the performance of the History & Physical I have noted the following changes of clinical significance: no changes noted
--- NOTE | 2025-06-02 13:11 | Cardiology Progress Note ---
Date of Service June 02, 2025 Assessment & Plan (1) Atrial fibrillation with rapid ventricular response: Plan: -Will proceed with electrical cardioversion today. -INR remains therapeutic. -Would convert to oral amiodarone 200 mg twice daily x 1 week, then 200 mg daily. -Follow-up with Dr. Beasley. (2) CAD in [place] artery: Plan: -Proximal LAD 23% stenosis, November 2014. -Quiescent on medical management. (3) Hypertension: Plan: - Adequate control on current regimen. Admission and Anticipated Discharge Date Admission Date: May 30, 2025 Subjective The patient is resting comfortably in the bedside chair without complaints of chest pain or dyspnea. She does note an occasional palpitation. We have discussed proceeding with an elective, electrical cardioversion. Physical Exam Physical Exam: In general this is an obese white female in no acute distress. HEENT exam is negative. Neck reveals normal carotid upstrokes without bruits. Jugular venous pressure is flat at 90. There is no thyromegaly. Cardiovascular exam reveals an irregularly irregular rhythm with distant heart sounds. No obvious murmurs. Lungs are clear without rales, rhonchi, or wheezes. Abdomen is soft without bruits. Extremities reveal intact radial artery pulses bilaterally. There is trace peripheral edema. Results & Data Vital Signs (Past 12 Hours) Vital Signs Temp Pulse Resp BP BP Pulse Ox O2 Del Method 06/02/25 13:06 114 H 14 149/95 H 97 Room Air 06/02/25 11:57 36.6 C 119 H 18 109/77 96 Room Air 06/02/25 07:17 36.5 C 108 H 18 131/89 97 Room Air 06/02/25 03:06 36.8 C 100 H 16 141/93 H 97 Room Air Diagnostic Findings monitor tech notes atrial fibrillation with a rapid ventricular response. PG Care Time/CCT Total # of Minutes Spent Total Time Spent with Patient: Total time spent is greater than 50% in coordination of care (as documented) at patient's floor/unit and/or counseling patient: Coding Level of Care Code 16904 SUB INP/OBS CARE 3/50MIN Diagnoses Atrial fibrillation with rapid ventricular response I48.91 CAD in [place] artery I25.10 Primary hypertension I10 Hypertension type: primary hypertension (3) Hypertension Hypertension type: primary hypertension Qualified Code(s): I10 - Essential (primary) hypertension
--- NOTE | 2025-06-02 13:32 | Cardioversion ---
Date of Service June 02, 2025 PG Electrical Cardioversion Rp Electrical Cardioversion Report Date of procedure: June 02, 2025 Procedure: Elective, electrical cardioversion Indication: Refractory atrial fibrillation Protocol: After informed consent and a "timeout" performed, the patient was sedated smoothly by anesthesia. The patient was monitored continuously by telemetry, and end-tidal CO2, pulse oximetry, and sphygmomanometry. Once anesthetized, the patient was given 150 J of synchronized, biphasic energy via hands-off paddles. This successfully converted the patient to normal sinus rhythm. There were no complications. The patient tolerated the procedure well. Following the cardioversion, the patient was awake, alert, conversant, and without complaints. Conclusions: 1. Successful cardioversion to normal sinus rhythm. 2. No complications. Coding Level of Care Code 84215 CARDIOVERSION, ELECTIVE Additional Codes Electrical Cardioversion Report ([id number])
--- NOTE | 2025-06-02 13:39 | Anesthesiology Progress Note ---
Date of Service June 02, 2025 Anesthesia Post Procedure Vital Signs Vital Signs: Temp Pulse Pulse Resp BP BP Pulse Ox 06/02/25 13:37 67 14 128/72 95 06/02/25 13:22 66 14 112/64 95 06/02/25 13:06 114 H 14 149/95 H 97 06/02/25 11:57 36.6 C 119 H 18 109/77 96 06/02/25 07:17 36.5 C 108 H 18 131/89 97 06/02/25 03:06 36.8 C 100 H 16 141/93 H 97 06/01/25 23:48 106 H 06/01/25 23:12 37.0 C 103 H 16 104/70 96 06/01/25 19:38 36.2 C L 119 H 16 107/73 95 06/01/25 14:59 36.9 C 105 H 18 104/66 95 06/01/25 14:37 108 H O2 Del Method 06/02/25 13:37 Room Air 06/02/25 13:22 Room Air 06/02/25 13:06 Room Air 06/02/25 11:57 Room Air 06/02/25 07:17 Room Air 06/02/25 03:06 Room Air 06/01/25 23:48 06/01/25 23:12 Room Air 06/01/25 19:38 Room Air 06/01/25 14:59 Room Air 06/01/25 14:37 Transfer of Care Handoff Completed per policy Notes Mental Status: alert / awake / arousable and participated in evaluation Patient Amnestic to Procedure: Yes Nausea / Vomiting: adequately controlled Pain: adequately controlled Airway Patency, RR, SpO2: stable & adequate BP & HR: stable & adequate Hydration State: stable & adequate Anesthetic Complications: no major complications apparent
--- NOTE | 2025-06-02 17:25 | Hospitalist Progress Note ---
Date of Service June 02, 2025 Assessment & Plan (1) Atrial fibrillation with RVR: (2) Elevated INR: Plan 75-year-old female PMHx A-fib on warfarin, CAD, actinic keratosis, anxiety, HLD, EMILY, GERD, and HTN presenting for elevated heart rate on the day of arrival on 05/30/2025. Evaluation does reveal elevated INR of 4.2 and UA suspicious of a possible infection versus contamination, however culture is still pending and patient is without symptoms. COVID/flu/RSV and CXR official read are still pending. Admission for A-fib RVR. #A-fib RVR H/o Afib, previously on flecainide but discontinued by team physician and placed on metoprolol twice daily for rate control as compared to rhythm control (last visit 05/25/2025). No clear infection or identifiable cause of onset of A-fib with RVR at this time-->UA possible suspicious for infection, however UC with NG CBC/BMP stable, Mg WNL, recent TSH WNL; Trop 13.5. EKG on admission w/ A fib RVR on 117 bpm Echo: EF 55-60%; Moderate mitral regurg. Cardiology consult--->Cardizem gtt d/c'ed, oral Cardizem d/c'ed, Amiodarone infusion started 05/31/25 Patient ultimately elected to undergo a cardioversion with Dr. Leong on 06/02 Tolerated procedure well; HD stable postoperatively However, she reported some chest soreness and AG postop, and is requesting to stay 1 additional night to ensure no conversion while being maintained on telemetry If no setbacks, will plan to discharge home on the morning of 06/03 DC amiodarone infusion Initiate amiodarone 200 mg p.o. BID x 1 week, with plan to eventually return to 200 mg daily #Elevated INR (resolved) Warfarin 1mg daily and 2mg every Sunday; no bleeding reported. No dietary adjustments, follows with PCP monthly for INR checks. INR 2.0 on 06/02 #HTN Lisinopril #HLD Rosuvastatin #GERD Pantoprazole Dispo: Continued stay on PCU telemetry; hopeful discharge home on 06/03 VTE Prophylaxis: Warfarin Admission and Anticipated Discharge Date Admission Date: May 30, 2025 Subjective Mrs. Alexis is feeling well after her cardioversion today. However, she does have "soreness" in her chest and is feeling incredibly fatigued. Patient reports that she does have mild AG at baseline, but has not been out of bed since the procedure, and is feeling somewhat lightheaded. Patient denies any overt chest pain at this time. No chest palpitations. She reports that after her cardioversion several years back, she did not convert back into atrial fibrillation for several years. However, she was requesting an additional night in the hospital to ensure she does not convert back to A-fib overnight. ROS: Patient endorses chest soreness, generalized fatigue, and AG. Patient denies fever, chills, night sweats, dizziness at rest, headache, chest pain, chest potation's, SOB at rest, pleuritic CP, cough, abdominal pain, N/V/D, or changes in urinary/bowel habits. Review of Systems Review of Systems: See HPI above Physical Exam Physical Exam: General: no acute distress; pleasant affect; non-toxic appearing; cooperative; SpO2 95% on RA HEENT: normocephalic, atraumatic; PERRLA; vision and hearing intact Neck: supple; trachea midline Skin: warm, dry without signs of tenting; no cyanosis; no rashes, bruising, lesions, or erythema noted CV: chest wall is mildly TTP; RRR around 70 bpm; S1/S2 normal; no murmurs/rubs/gallops; pulses intact and symmetric at radial, DP, and PT Lungs: no acute respiratory distress; symmetrical chest wall expansion; clear breath sounds across all lung shah w/o adventitious sounds; no wheezing ABD: Soft, NTP; BS present; no rebound/guarding; no distention MSK: no tics or fasciculations; nonpitting edema noted in the LEs b/l, nonerythematous Neuro: A&Ox3; normal mood and affect; fluent speech; sensation intact and symmetric in the LEs b/l Results & Data Results & Data Vital Signs (Past 12 Hours) Vital Signs Temp Pulse Resp BP BP Pulse Ox O2 Del Method 06/02/25 13:57 36.8 C 64 18 121/79 98 Room Air 06/02/25 13:37 67 14 128/72 95 Room Air 06/02/25 13:22 66 14 112/64 95 Room Air 06/02/25 13:06 114 H 14 149/95 H 97 Room Air 06/02/25 11:57 36.6 C 119 H 18 109/77 96 Room Air 06/02/25 07:17 36.5 C 108 H 18 131/89 97 Room Air PG Care Time/CCT Total # of Minutes Spent Total Time Spent with Patient: Total time spent is greater than 50% in coordination of care (as documented) at patient's floor/unit and/or counseling patient: Coding [place] [address] SUB INP/OBS CARE 2/35MIN Patient Type Established Medical Decision Making Moderate Complexity Diagnoses Atrial fibrillation with RVR I48.91 Elevated INR R79.1
[2025-06-02] MEDS: AMIODARONE 200 MG TAB PO SCH (19:59)
[2025-06-03 06:21] LABS: Hematocrit (blood only) 41.5 % (37.0-47.0); Hemoglobin 13.6 g/dL (12.0-16.0); Mean Corpuscular Hemoglobin 30.3 pg (25.0-34.0); Mean Corpuscular Volume 92.4 fL (80.0-100.0); Platelet Count 198 K/uL (130-400); RDW Standard Deviation 44.2 fL (36.4-46.3); Red Blood Count 4.49 M/uL (4.20-5.40); White Blood Count 7.07 K/ul (4.8-10.8)
[2025-06-03 06:39] LABS: Anion Gap 5.0 (3-11); Blood Urea Nitrogen 13.0 mg/dl (6-23); Calcium 8.7 mg/dl (8.6-10.3); Carbon Dioxide 28.0 mmol/L (21-32); Chloride 108.0 mmol/L (98-107); Creatinine Clr Calc Pharmacy 80.8 ml/min; Glucose 99.0 mg/dl (70-99(Fasting)); Potassium 4.0 mmol/L (3.5-5.1); Sodium 141.0 mmol/L (136-145)
[2025-06-03 06:54] LABS: INR 1.9 (0.9-1.1); Prothrombin Time 19.8 Seconds (9.0-12.0)
--- NOTE | 2025-06-03 09:44 | Discharge Summary ---
Discharge Summary Date of Service June 03, 2025 Principal Dx & Hospital Course #1 = Principal Diagnosis (1) Atrial fibrillation with RVR: (2) Elevated INR: Plan 75-year-old female PMHx A-fib on warfarin, CAD, actinic keratosis, anxiety, HLD, EMILY, GERD, and HTN presenting for elevated heart rate on the day of arrival on 05/30/2025. Evaluation does reveal elevated INR of 4.2 and UA suspicious of a possible infection versus contamination, however culture is still pending and patient is without symptoms. COVID/flu/RSV and CXR official read are still pending. Admission for A-fib RVR. #A-fib RVR (resolved) H/o Afib, previously on flecainide but discontinued by hospice art therapist and placed on metoprolol twice daily for rate control as compared to rhythm control (last visit 05/25/2025). No clear infection or identifiable cause of onset of A-fib with RVR at this time-->UA possible suspicious for infection, however UC with NG CBC/BMP stable, Mg WNL, recent TSH WNL; Trop 13.5. EKG on admission w/ A fib RVR on 117 bpm Echo: EF 55-60%; Moderate mitral regurg. Cardiology consult--->Cardizem gtt d/c'ed, oral Cardizem d/c'ed, Amiodarone infusion started 05/31/25 Patient ultimately elected to undergo a cardioversion with Dr. Leong on 06/02 Tolerated procedure well; HD stable postoperatively Touched base with telemetry monitoring on the morning of 06/03; no events overnight, and patient has remained in normal sinus rhythm at 60 to 70 bpm without spikes Amiodarone 200 mg p.o. BID x 1 week, with plan to eventually return to 200 mg daily Maintain decreased dose of metoprolol tartrate 25 mg p.o. BID on discharge #Elevated INR (resolved) Warfarin 1mg daily and 2mg every Sunday; no bleeding reported. No dietary adjustments, follows with PCP monthly for INR checks. INR 1.9 on 06/03 Resume normal warfarin dosing on discharge Trend PT/INR as an OP #HTN Lisinopril #HLD Rosuvastatin #GERD Pantoprazole Day of discharge 06/03: VSS Mrs. Alexis reports no events overnight. She had difficulty sleeping in her hospital bed, but was able to get up and ambulate using her cane to the bathroom multiple times without feeling dizzy, lightheaded, or short of breath. She has had no recurrence of chest palpitations since being in the hospital. No chest pain at rest or with walking. Patient reports she "feels back to normal". She does have a home pulse oximeter, and knows how to check to see if her heart rate becomes rapid. Her only symptom at this time is some mild "achiness" in her chest where the pad was placed for the cardioversion. Otherwise, she feels well, and expresses a desire to return home today if possible. She reports that her son or significant other can pick her up from the hospital. ROS: Patient endorses dry cough and chest achiness. Patient denies fevers, chills, night sweats, chest pain, chest palpitations, SOB at rest, AG, dizziness/lightheadedness with ambulation, abdominal pain, N/V/D, numbness or tingling in the arms or legs, or changes in urinary/bowel habits. Disposition: Discharge home Notes For Next Care Provider Patient hospitalized for atrial fibrillation with RVR. Refractory to amiodarone infusion. Patient underwent a cardioversion on 06/02. Did well postoperatively, and did not convert back to A-fib overnight. Will plan to discharge patient on amiodarone 200 mg twice daily x 1 week, followed by amiodarone 200 mg daily. We will also plan to continue metoprolol tartrate at 25 mg p.o. BID on discharge. Patient should plan to follow-up with her hospice art therapist (Dr. Beasley) on an outpatient basis. 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 She got approximately 1 to 2 hours of sleep secondary to checking this continuously. She did not feel any palpitations but does report some shortness of breath with the elevated heart rate. Patient states that she has AG at baseline, and that her SOB that occurred with elevated heart rate did not feel different from this. She reports that she continued to check her heart rate throughout the day, and it got into the 130s at its maximum heart rate so she decided to come to the hospital. She is without additional symptoms to include chest pain, cough, palpitations, lightheadedness, or dizziness. She takes her warfarin as scheduled which is 1 mg every day except for on Wednesdays where she takes 2 mg. She reports that she is without infectious symptoms, no LUTS/URI symptoms/fever or chills. She was seen by her hospice art therapist the week of and discontinued from flecainide and increased on her metoprolol dosing. She reports requiring flecainide in the past but was discontinued from it at that time as well. She is unable to tell me why it was discontinued. She reports that she has a history of EMILY, does not wear CPAP at night but has a patch that she puts around her face. She thinks that her nose got blocked and this is what triggered her A-fib. Again, patient denies LUTS. Denies chest pain, abdominal pain, N/V/D/C, numbness/tingling, fever/chills, weakness, syncope, or falls. She has been taking her medications as prescribed. She had a steroid injection into her knee on 05/23/2025. No other changes to her daily regimens. ED evaluation reveals CBC without leukocytosis or leukopenia, H&H 16.6/50.6, platelets stable; PT/INR 41.3/4.2 respectively, APTT 32; CMP glucose 110; troponin 13.5; UA without bacteria does have presence of LE and WBC; COVID/flu/RSV negative; CXR pending official read; EKG A-fib with RVR at 117 bpm.; Provided with Lopressor 5 mg IV, diltiazem 10 mg IV, and then started on diltiazem drip in ED. Please see Dr. Posadas's attestation for adjustments/additions to treatment plan. Admission Exam Per Admitting Provider General: No acute distress Skin: Warm and dry Head: Normocephalic, atraumatic Eyes: PERRL, conjunctivae clear, sclera non-icteric; wearing glasses ENT: External ear and ear canal without swelling; nose atraumatic; good dentition, tongue normal appearance, pharynx normal Neck: Supple, no LAD Cardio: Irregularly irregular rhythm, tachycardia (100s-110s), no M/G/R, S1 and S2 normal Resp: No respiratory distress, Lungs CTA in all lobes bilaterally, no wheezes, rales, or rhonchi Abdomen: Soft, symmetric, nontender; No masses or hepatosplenomegaly; Bowel sounds normoactive MSK: No deformities; pulses palpable and equal; trace pitting edema BLE to knees Neuro: Awake, alert; Sensation intact bilaterally; CN grossly intact Psych: Appropriate mood and affect; good judgement and insight. Discharge Exam General: no acute distress; pleasant affect; sitting upright in bed; non-toxic appearing; cooperative; SpO2 94% on RA HEENT: normocephalic, atraumatic; PERRLA; vision and hearing intact Neck: supple; trachea midline Skin: warm, dry without signs of tenting; no cyanosis; no rashes, bruising, lesions, or erythema noted CV: chest wall is mildly TTP; RRR around 60 to 70 bpm; S1/S2 normal; no murmurs/rubs/gallops; pulses intact and symmetric at radial, DP, and PT Lungs: no acute respiratory distress; symmetrical chest wall expansion; clear breath sounds across all lung shah w/o adventitious sounds; no wheezing ABD: Soft, NTP; BS present; no rebound/guarding; no distention MSK: no tics or fasciculations; +1 pedal edema around the ankles bilaterally, nonerythematous Neuro: A&Ox3; normal mood and affect; fluent speech; sensation intact and symmetric in the LEs b/l Discharge Plan Discharge Items Patient Disposition: Home - Self-Care Reason For Visit: AFIB RVR Discharge Diagnosis: Atrial fibrillation with RVR Condition on Discharge: Fair Activity: Resume your previous activity Non-emergency contact: Primary Care Provider and Economic Adviser Call non-emergency contact if: you have any medication questions and your symptoms worsen Follow-up/Referrals: Gamaliel Beasley MD [Physician] - 07/23/25 Tanya Whitaker DO [Primary Care Provider] - 06/09/25 10:15 am Diet: Regular Addtl Attending Provider Instructions: You were hospitalized at [facility] from 05/30 to 06/03 for an elevated heart rate. On arrival, an EKG was obtained that revealed you were in a rhythm called atrial fibrillation with rapid ventricular rate. Several medications were attempted to decrease your heart rate and convert you back to a normal sinus rhythm (including metoprolol, diltiazem, and an IV amiodarone infusion). Ultimately, we elected to perform a cardioversion on 06/02, and following this procedure he returned to a normal sinus rhythm. You reported that you were feeling well postoperatively, and denied any residual symptoms (such as chest pain, chest palpitations, lightheadedness, or trouble breathing with walking). Given your vitals are currently stable, and you remained in a normal sinus rhythm at 60 to 70 bpm overnight, we feel that you are safe to return home at this time. Changes to medications on discharge: Amiodarone 200 mg twice daily x 1 week, then... Starting on June 10, 2025, drop down to Amiodarone 200 mg once daily in the mornings Decrease metoprolol tartrate from 50 mg -> 25 mg twice daily Please plan to follow-up with your PCP in the next 7 to 10 days for a transitional care appointment. Prior to this appointment, we recommend that you have repeat blood work drawn to assess your PT/INR levels, as amiodarone can sometimes affect warfarin levels. Your INR is currently 1.9 at time of discharge. Please continue to take your warfarin as prescribed prior to hospitalization. We also recommend that you follow-up with your hospice art therapist (Dr. Hernandez) at your earliest convenience. You currently have an appointment scheduled with Dr. Beasley on 07/23/2025; however, we recommend calling the office trying to get this appointment moved up if possible. If you develop any new or worsening symptoms, such as fever, chills, lightheadedness with walking, difficulty breathing, chest pain, chest palpitations, or fainting spells, please return to the emergency department immediately. It was a pleasure taking care of you. Please reach out with any questions or concerns. Sincerely, The Hospital medicine team at [facility] Pending Studies at Discharge: No Stand-Alone Forms: My [facility] Medications and DC Order Prescriptions: New amiodarone 200 mg Tablet 200 mg PO BIDM 7 Days Qty: 14 0RF Rx Instructions: Take 1 tablet twice daily x 7 days metoprolol tartrate 25 mg Tablet 25 mg PO BID 30 Days Qty: 60 0RF amiodarone 200 mg tablet 200 mg PO DAILY 30 Days Qty: 30 0RF Rx Instructions: Take 1 tablet daily starting on June 10, 2025 Continued multivitamin tablet 1 tab PO DAILY lisinopril 5 mg tablet 2.5 mg PO DAILY pantoprazole 20 mg tablet,delayed release (DR/EC) 20 mg PO DAILY Patient Comments: 05/22- per pt she isnt sure if she still takes medication. she couldn't find her list in her purse. Last filled 20mg dose 04/17 90 day supply #90. original directions:40 mg po daily rosuvastatin 10 mg tablet 10 mg PO DAILY acetaminophen 500 mg Tablet 500 mg PO Q6H PRN (Reason: Pain) warfarin 2 mg tablet 2 mg PO DIRECTED Protocol: Dose Management Condition: Sunday Dose/Route: 1 mg Instruction: 0.5 x 2 mg tablets Condition: Sunday Dose/Route: 1 mg Instruction: 0.5 x 2 mg tablets Condition: Sunday Dose/Route: 1 mg Instruction: 0.5 x 2 mg tablets Condition: Sunday Dose/Route: 2 mg Instruction: 1 x 2 mg tablet Condition: Dose/Route: 1 mg Instruction: 0.5 x 2 mg tablets Condition: Sunday Dose/Route: 1 mg Instruction: 0.5 x 2 mg tablets Condition: Sunday Dose/Route: 1 mg Instruction: 0.5 x 2 mg tablets Protocol Text: Adjustment Start Date: Sunday05/19/25 INR Value: 2.4 INR Date: 05/19/25 Recheck Date: 06/18/25 Rx Instructions: TAKES 1mg ON sun, sun, , , fri, sat EVENINGS;THEN TAKES 2mg Sunday EVENING cholecalciferol (vitamin D3) [Vitamin D3] 25 mcg (1,000 unit) tablet 25 mcg PO DAILY Patient Comments: 05/21- OTC unknown dose cyanocobalamin (vitamin B-12) 50 mcg tablet 50 mcg PO DAILY Patient Comments: 05/21- OTC unknown dose Discontinued metoprolol tartrate 50 mg tablet 50 mg PO BID Qty: 180 3RF Discharge Orders: Discharge Order (Routine); Ordered 06/03/25 Ordered By: Bossman Peres/Other Patient Handouts: Amiodarone Oral Tablet Admission Data Admit Date/Time: 05/30/25 20:27 Attending Provider: Samuel Diaz Admit Provider: Maryse Posadas Primary Care Provider: Tanya Whitaker. Other Providers: Maryse Posadas; Mariposa Burton; Yessi Coyle; Liz Brasher; Talia Foss; Rosi Melo; Rafat Thomas; Kosta Mayorga; Hany Ragsdale; Milo Bianchi; Sepideh Don; Kurt Brock; Dom Mcconnell; Gerald Gutierrez; Dona Mckeon; Donato De Los Santos; Linda De Los Santos; Cesar Becker; Liliana Alcantar; Ivan Mcrae; Kendra Russell; Denice Jeter; Mark Priest; Maryse Contreras; Tiffany Reis; Migdalia Harp; Amalia Ontiveros; Jignesh Ontiveros V; Jacob Landry; Liz Shields; Codey Currie; Marietta De Oliveira; Jignesh Leigh; Abel Mckeon; Collins Gonzalez; Soledad Gibson; Rachel Vogel; Jignesh Lao; Tye Clifton; Zhanna Jerry; Branden Carranza; Shahla Alan; Vanesa Golden; Mariusz Bartholomew; Jamar Davis; Lorena Felder; Hany Varela; Ghada Hoffmann; Paul Mcclendon; Ranjit Byrnes; Rafat Lopez Jr; Diane Douglas; Elizabeth Pennington ABlayne; Keara Powers; Mark Rios; Bossman Broderick; Elizabeth Rousseau ABlayne; Phong Sosa; Aniceto Waller; Baljinder Hall; Balaji Mullins; Xenia Olmstead; Michelle العراقي; Sarah Booth; Amada Gonzalez; Lauren Leonard; Marlon Jones Jr; Rocio Beverly; Maryse Saini; Eris Gaffney; Juliane Null; Gudelia Murphy; Sepideh Riggs; Aisha Mckeon; Costa Deluna Hospital Stay Data Consultations 05/30/25 19:22 ED Decision to Admit Stat 05/30/25 21:49 Consult Cardiology Routine 05/31/25 23:53 Consult Anesthesiology Routine Procedures Performed Operation Date: 06/02/25 13:00 Actual Procedures p Cardioversion - Jeffery Leong MD Discharge Instructions Given to Patient (Per Discharging Provider) You were hospitalized at [facility] from 05/30 to 06/03 for an elevated heart rate. On arrival, an EKG was obtained that revealed you were in a rhythm called atrial fibrillation with rapid ventricular rate. Several medications were attempted to decrease your heart rate and convert you back to a normal sinus rhythm (including metoprolol, diltiazem, and an IV amiodarone infusion). Ultimately, we elected to perform a cardioversion on 06/02, and following this procedure he returned to a normal sinus rhythm. You reported that you were feeling well postoperatively, and denied any residual symptoms (such as chest pain, chest palpitations, lightheadedness, or trouble breathing with walking). Given your vitals are currently stable, and you remained in a normal sinus rhythm at 60 to 70 bpm overnight, we feel that you are safe to return home at this time. Changes to medications on discharge: Amiodarone 200 mg twice daily x 1 week, then... Starting on June 10, 2025, drop down to Amiodarone 200 mg once daily in the mornings Decrease metoprolol tartrate from 50 mg -> 25 mg twice daily Please plan to follow-up with your PCP in the next 7 to 10 days for a transitional care appointment. Prior to this appointment, we recommend that you have repeat blood work drawn to assess your PT/INR levels, as amiodarone can sometimes affect warfarin levels. Your INR is currently 1.9 at time of discharge. Please continue to take your warfarin as prescribed prior to hospitalization. We also recommend that you follow-up with your hospice art therapist (Dr. Hernandez) at your earliest convenience. You currently have an appointment scheduled with Dr. Beasley on 07/23/2025; however, we recommend calling the office trying to get this appointment moved up if possible. If you develop any new or worsening symptoms, such as fever, chills, lightheadedness with walking, difficulty breathing, chest pain, chest palpitations, or fainting spells, please return to the emergency department immediately. It was a pleasure taking care of you. Please reach out with any questions or concerns. Sincerely, The Hospital medicine team at [facility] Total Time Total Time Spent Total Time Spent (In Minutes): 25 Coding [place] [address] IN/OBS DISCH 30 MIN/LESS Patient Type Established History Comprehensive Exam Comprehensive Medical Decision Making Moderate Complexity Diagnoses Atrial fibrillation with RVR I48.91 Elevated INR R79.1
[2025-06-03 11:37] VITALS: RESP 19; TEMP 97.7; O2SAT 95
[2025-06-03 14:29] VITALS: BP 128/72
[2025-06-03 15:11] VITALS: PULSE 67
== END 2025-06-03 15:13 | disposition home or self-care (01) | DRG 310 ==
LOC: ED 17:58 → 4W 20:27 → SUATTDRO 20:27 → 4W 21:35